=== PATIENT | male | born 1965 | race Caucasian/White ===

== ENCOUNTER → 2016-11-25 | Outpatient (CLI) | payer OTHER ==
[2016-11-25 09:43] LABS: Basophils % (A) 1 %; CH 32.3; CHCM 33.8; Eosinophils # (A) 0.1 k/uL (0-0.7); Eosinophils % (A) 1 %; HCT 43.4 % (39.0-53.0); HDW 2.42; HGB 14.2 gm/dL (13.0-17.5); Luc # (Auto) 0.17; Luc % (Auto) 2; Lymphocytes % (A) 26 %; MCH 31.4 pg (25.0-35.0); MCHC 32.7 g/dL (31.0-37.0); MCV 96.2 fL (80.0-100.0); Mean Platelet Volume 7.8; Monocytes # (A) 0.5 k/uL (0-1.0); Monocytes % (A) 7 %; Neutrophils # (A) 4.8 k/uL (1.3-7.7); Neutrophils % (A) 63 %; RBC 4.51 m/uL (4.30-5.90); RDW 14.8 % (11.5-15.5); WBC 7.6 k/uL (3.8-10.6); WBC (Perox) 7.38
[2016-11-25 10:48] LABS: ALT 64 U/L (21-72); AST 47 U/L (17-59); Alkaline Phosphatase 106 U/L (38-126); Anion Gap 10 mmol/L; Blood Urea Nitrogen 11 mg/dL (9-20); Calcium 9.8 mg/dL (8.4-10.2); Carbon Dioxide 27 mmol/L (22-30); Chloride 103 mmol/L (98-107); Glucose 116 mg/dL (74-99); HDL Cholesterol 62 mg/dL (40-60); Magnesium 1.9 mg/dL (1.6-2.3); Non-African American GFR(MDRD) >60 (>60 ml/min/1.73 sqM); Potassium 4.5 mmol/L (3.5-5.1); Sodium 140 mmol/L (137-145); Total Bilirubin 1.1 mg/dL (0.2-1.3); Total Protein 7.3 g/dL (6.3-8.2); Triglycerides 253 mg/dL (<150)
[2016-11-25 11:08] LABS: Cholesterol 392 mg/dL (<200)
[2016-11-25 12:43] LABS: Hemoglobin A1C 5.8 % (4.2-6.1)
[2016-11-25 13:00] LABS: Vitamin B12 323 pg/mL (239-931)
== END | disposition home or self-care (01) ==
LOC: LABWHC1 08:48
PROVIDERS: ATTEND Family Medicine
DX: F10.20 Alcohol dependence, uncomplicated (principal); E11.9 Type 2 diabetes mellitus without complications; I21.21 ST elevation (STEMI) myocardial infarction involving left circumflex coronary artery; E78.5 Hyperlipidemia, unspecified
CPT/HCPCS: 36415; 80053; 80061; 82607; 83036; 83735; 84439; 84443; 85025

== ENCOUNTER → 2017-03-08 | Outpatient (CLI) | payer OTHER ==
[2017-03-08 09:33] LABS: Aty Lym Flag Slight; CH 32.3; CHCM 33.6; HCT 44.9 % (39.0-53.0); HDW 2.37; HGB 14.7 gm/dL (13.0-17.5); MCH 31.6 pg (25.0-35.0); MCHC 32.7 g/dL (31.0-37.0); MCV 96.6 fL (80.0-100.0); RBC 4.65 m/uL (4.30-5.90); RDW 13.8 % (11.5-15.5); WBC 5.8 k/uL (3.8-10.6); WBC (Perox) 5.88
[2017-03-08 11:47] LABS: ALT 41 U/L (21-72); AST 26 U/L (17-59); Alkaline Phosphatase 100 U/L (38-126); Anion Gap 10 mmol/L; Blood Urea Nitrogen 15 mg/dL (9-20); Calcium 9.5 mg/dL (8.4-10.2); Carbon Dioxide 25 mmol/L (22-30); Chloride 105 mmol/L (98-107); Cholesterol 314 mg/dL (<200); Creatine Kinase 66 U/L (55-170); Glucose 114 mg/dL (74-99); HDL Cholesterol 51 mg/dL (40-60); Non-African American GFR(MDRD) >60 (>60 ml/min/1.73 sqM); Sodium 140 mmol/L (137-145); Total Bilirubin 0.9 mg/dL (0.2-1.3); Total Protein 7.4 g/dL (6.3-8.2); Triglycerides 221 mg/dL (<150)
[2017-03-08 12:36] LABS: Vitamin B12 518 pg/mL (239-931)
[2017-03-08 14:08] LABS: Add Differential Manual Differential
[2017-03-08 14:11] LABS: Nucleated Red Blood Cells 0 /100 WBC (0-0); Total Cells Counted 100
[2017-03-08 14:12] LABS: RBC Morphology Normal
== END | disposition home or self-care (01) ==
LOC: LABWHC1 08:39
PROVIDERS: ATTEND Family Medicine
DX: E78.5 Hyperlipidemia, unspecified (principal); I25.708 Atherosclerosis of coronary artery bypass graft(s), unspecified, with other forms of angina pectoris; F10.10 Alcohol abuse, uncomplicated
CPT/HCPCS: 36415; 80053; 80061; 82550; 82607; 83090; 84439; 84443; 85025

== ENCOUNTER 2017-04-10 11:15 | Emergency (ER) | payer OTHER ==
[2017-04-10 11:21] VITALS: BP 130/86; PULSE 74; RESP 18; TEMP 97.8
[2017-04-10] MEDS ORDERED: ORPHENADRINE 30 MG/ML 2 ML VIAL IM STA (13:31)
[2017-04-10] MEDS ORDERED: KETOROLAC 60 MG/2 ML VIAL IM STA (13:31)
--- NOTE | 2017-04-10 13:34 | ED ---
General Adult HPI - General Chief complaint: Neck Pain/Injury Stated complaint: neck pain Time Seen by Provider: 04/10/17 13:00 Source: patient, RN notes reviewed Mode of arrival: ambulatory Limitations: no limitations - History of Present Illness Initial comments: This is a 51-year-old male who presents emergency Department with right trapezius muscle pain. Patient states he was working on his car on Friday he didn't feel as though he strained it but when he went to work on Friday which is a job that has been doing a lot of lifting he had pain anytime he tried to lift anything. Patient states if he raises his arm up and sits on a table it relieves the pain in the trapezius muscle. Patient states any movement of the right arm causes some pain in the trapezius muscle. Patient denies any numbness weakness. Patient denies any chest pain difficulty breathing shortness of breath. Patient denies any palpitations. Patient denies any recent fever chills or cough. Patient denies any direct trauma to the area. - Related Data Home Medications Medication Instructions Recorded Confirmed Albuterol Inhaler [Ventolin Hfa 2 puff INHALATION RT-Q6H PRN 06/12/16 04/10/17 Inhaler] Aspirin 325 mg PO DAILY 06/12/16 04/10/17 Metoprolol Succinate [Toprol XL] 50 mg PO BID 06/12/16 04/10/17 Tiotropium 18 Mcg/Puff [Spiriva] 1 cap INHALATION RT-BID 06/12/16 04/10/17 amLODIPine BESYLATE [Amlodipine 5 mg PO BID 06/12/16 04/10/17 Besylate] metFORMIN HCL [Metformin HCl] 850 mg PO DAILY@1200 06/12/16 04/10/17 Cyanocobalamin [Vitamin B-12] 500 mcg PO DAILY 04/10/17 04/10/17 Royal 3-6-9mg 1 cap PO DAILY 04/10/17 04/10/17 Rosuvastatin [Crestor] 20 mg PO DAILY 04/10/17 04/10/17 buPROPion [Wellbutrin] 100 mg PO BID 04/10/17 04/10/17 Previous Rx's Medication Instructions Recorded Clopidogrel [Plavix] 75 mg PO DAILY #30 tab 09/13/16 Nitroglycerin Sl Tabs [Nitrostat] 0.4 mg SUBLINGUAL Q5M PRN #25 tab 09/13/16 Pantoprazole [Protonix] 40 mg PO AC-BRKFST #30 tablet. 09/13/16 Cyclobenzaprine [Flexeril] 10 mg PO TID #20 tab 04/10/17 Ibuprofen [Motrin] 600 mg PO Q6HR PRN #20 tab 04/10/17 Allergies Allergy/AdvReac Type Severity Reaction Status Date / Time codeine AdvReac Nausea Verified 04/10/17 13:30 Review of Systems ROS Statement: Those systems with pertinent positive or pertinent negative responses have been documented in the HPI. ROS Other: All systems not noted in ROS Statement are negative. Past Medical History Past Medical History: COPD, Diabetes Mellitus, GERD/Reflux, Hyperlipidemia, Hypertension, Myocardial Infarction ([place]), Osteoarthritis (OA) Additional Past Medical History / Comment(s): [place] x2 Last Myocardial Infarction Date:: 2008 History of Any Multi-Drug Resistant Organisms: None Reported Past Surgical History: Coronary Bypass/CABG, Heart Catheterization With Stent Additional Past Surgical History / Comment(s): CABG-4 vessel in 2007, stent x1 or 2, drug-eluting stent August 2016 of the SVG to OM 2 with aspiration thrombectomy Past Anesthesia/Blood Transfusion Reactions: No Reported Reaction Date of Last Stent Placement:: unk Past Psychological History: Anxiety Smoking Status: Current every day smoker Past Alcohol Use History: Daily Additional Past Alcohol Use History / Comment(s): 12 pack of beer per week with 1 pint of whiskey. He is currently smoking 1 pack per day of cigarettes down from 1-1/2 packs. He started smoking in 1985. He denies any medical marijuana , marijuana, street drug use. He lives at home with his . Past Drug Use History: None Reported Additional Drug Use History / Comment(s): last marijuana use 1 mos ago - Past Family History Mother Family Medical History: Myocardial Infarction ([place]) Additional Family Medical History / Comment(s): Other at age 57 with history of myocardial infarction and coronary artery disease with CABG. Brother(s) Family Medical History: Myocardial Infarction ([place]) Additional Family Medical History / Comment(s): Brother at age 50 from myocardial infarction with history of coronary artery disease and CABG. Sister(s) Family Medical History: Myocardial Infarction ([place]) Additional Family Medical History / Comment(s): Patient had 1 sister that at age 28 from myocardial infarction. Father History Unknown: Yes Additional Family Medical History / Comment(s): Father at age 71 from coronary artery disease. General Exam - General Exam Comments Initial Comments: GENERAL: Patient is well-developed and well-nourished. Patient is nontoxic and well- hydrated and is in mild distress. ENT: Neck is soft and supple. No significant lymphadenopathy is noted. Oropharynx is clear. Moist mucous membranes. Neck has full range of motion without eliciting any pain. EYES: The sclera were anicteric and conjunctiva were pink and moist. Extraocular movements were intact and pupils were equal round and reactive to light. Eyelids were unremarkable. PULMONARY: Unlabored respirations. Good breath sounds bilaterally. No audible rales rhonchi or wheezing was noted. CARDIOVASCULAR: There is a regular rate and rhythm without any murmurs gallops or rubs. SKIN: Skin is clear with no lesions or rashes and otherwise unremarkable. NEUROLOGIC: Patient is alert and oriented x3. Cranial nerves II through XII are grossly intact. Motor and sensory are also intact. Normal speech, volume and content. Symmetrical smile. Cerebellar exam grossly intact. MUSCULOSKELETAL: Patient is unable to lift the right arm above. All secondary to the pain in the trapezius muscle. The patient of the trapezius muscle on the right is very tender. When patient raises the arm up and sits on the table it relaxes the trapezius muscle and he has no pain whatsoever. LYMPHATICS: No significant lymphadenopathy is noted PSYCHIATRIC: Normal psychiatric evaluation. Limitations: no limitations Course Vital Signs 04/10/17 11:19 Temperature 97.8 F Pulse Rate 74 Respiratory 18 Rate Blood Pressure 130/86 O2 Sat by Pulse 98 Oximetry Medical Decision Making - Medical Decision Making EKG shows normal sinus rhythm at 64 bpm MN interval 138 QRS is under QT intervals 428 QTC is 441 per patient's EKG shows some T-wave inversions in V1 and V2 which are seen on old EKGs. Patient has no ST segment elevation or depression. Patient is experiencing no difficulty breathing shortness of breath or chest pain. Disposition Clinical Impression: Trapezius muscle strain Disposition: HOME SELF-CARE Condition: Good Instructions: Muscle Strain (ED) Prescriptions: Cyclobenzaprine [Flexeril] 10 mg PO TID #20 tab Ibuprofen [Motrin] 600 mg PO Q6HR PRN #20 tab PRN Reason: For pain Referrals: Chhaya Galindo MD [Primary Care Provider] - 1-2 days
== END 2017-04-10 14:24 | disposition home or self-care (01) ==
LOC: EC 11:15
DX: S29.012A Strain of muscle and tendon of back wall of thorax, initial encounter (principal); J44.9 Chronic obstructive pulmonary disease, unspecified; E11.9 Type 2 diabetes mellitus without complications; E78.5 Hyperlipidemia, unspecified; I10 Essential (primary) hypertension; I25.2 Old myocardial infarction; F41.9 Anxiety disorder, unspecified; F17.210 Nicotine dependence, cigarettes, uncomplicated; Z79.82 Long term (current) use of aspirin; Z79.84 Long term (current) use of oral hypoglycemic drugs; Z79.899 Other long term (current) drug therapy; Z88.5 Allergy status to narcotic agent; X50.9XXA Other and unspecified overexertion or strenuous movements or postures, initial encounter
CPT/HCPCS: 93005; 99283; 96372 ×2; J2360; J1885

== ENCOUNTER → 2017-06-25 | Outpatient (CLI) | payer OTHER ==
[2017-06-25 07:23] LABS: Basophils % (A) 1 %; CH 31.8; Eosinophils # (A) 0.2 k/uL (0-0.7); Eosinophils % (A) 3 %; HCT 46.9 % (39.0-53.0); HDW 2.31; Luc # (Auto) 0.26; Luc % (Auto) 4; Lymphocytes # (A) 2.4 k/uL (1.0-4.8); Lymphocytes % (A) 40 %; MCH 31.1 pg (25.0-35.0); MCV 96.9 fL (80.0-100.0); Mean Platelet Volume 7.6; Monocytes # (A) 0.4 k/uL (0-1.0); Monocytes % (A) 7 %; Neutrophils # (A) 2.8 k/uL (1.3-7.7); Neutrophils % (A) 46 %; RBC 4.84 m/uL (4.30-5.90); RDW 15.1 % (11.5-15.5); WBC (Perox) 5.72
[2017-06-25 11:03] LABS: Hemoglobin A1C 6.3 % (4.2-6.1)
[2017-06-25 11:37] LABS: Urine Creatinine 61.9 mg/dL
[2017-06-25 11:51] LABS: ALT 55 U/L (21-72); AST 33 U/L (17-59); Alkaline Phosphatase 95 U/L (38-126); Anion Gap 11 mmol/L; Blood Urea Nitrogen 15 mg/dL (9-20); Calcium 9.3 mg/dL (8.4-10.2); Carbon Dioxide 23 mmol/L (22-30); Chloride 107 mmol/L (98-107); Cholesterol 286 mg/dL (<200); Creatine Kinase 75 U/L (55-170); Glucose 98 mg/dL (74-99); HDL Cholesterol 54 mg/dL (40-60); Non-African American GFR(MDRD) >60 (>60 ml/min/1.73 sqM); Potassium 4.2 mmol/L (3.5-5.1); Sodium 141 mmol/L (137-145); Total Bilirubin 0.4 mg/dL (0.2-1.3); Total Protein 7.1 g/dL (6.3-8.2)
[2017-06-25 13:07] LABS: Vitamin B12 592 pg/mL (239-931)
== END | disposition home or self-care (01) ==
LOC: LABWHC1 06:33
PROVIDERS: ATTEND Family Medicine
DX: E78.2 Mixed hyperlipidemia (principal); I25.708 Atherosclerosis of coronary artery bypass graft(s), unspecified, with other forms of angina pectoris; J44.9 Chronic obstructive pulmonary disease, unspecified; E11.9 Type 2 diabetes mellitus without complications; I10 Essential (primary) hypertension
CPT/HCPCS: 36415; 80053; 80061; 82043; 82550; 82570; 82607; 83036; 83735; 83880; 84439; 84443; 85025

== ENCOUNTER → 2018-01-05 | Outpatient (CLI) | payer OTHER ==
[2018-01-05 08:31] LABS: Basophils % (A) 1 %; Eosinophils # (A) 0.1 k/uL (0-0.7); Eosinophils % (A) 2 %; HCT 47.5 % (39.0-53.0); HGB 15.1 gm/dL (13.0-17.5); Lymphocytes # (A) 1.9 k/uL (1.0-4.8); Lymphocytes % (A) 30 %; MCH 30.1 pg (25.0-35.0); MCHC 31.9 g/dL (31.0-37.0); MCV 94.5 fL (80.0-100.0); Mean Platelet Volume 6.9; Monocytes # (A) 0.4 k/uL (0-1.0); Monocytes % (A) 7 %; Neutrophils # (A) 3.6 k/uL (1.3-7.7); Neutrophils % (A) 57 %; Platelet Count 246 k/uL (150-450); RBC 5.03 m/uL (4.30-5.90); RDW 14.2 % (11.5-15.5); WBC 6.3 k/uL (3.8-10.6)
[2018-01-05 10:10] LABS: ALT 50 U/L (21-72); AST 32 U/L (17-59); Albumin 4.3 g/dL (3.5-5.0); Alkaline Phosphatase 86 U/L (38-126); Anion Gap 10 mmol/L; Blood Urea Nitrogen 12 mg/dL (9-20); Calcium 9.9 mg/dL (8.4-10.2); Carbon Dioxide 29 mmol/L (22-30); Chloride 102 mmol/L (98-107); Creatine Kinase 74 U/L (55-170); Glucose 128 mg/dL (74-99); HDL Cholesterol 63 mg/dL (40-60); Potassium 5.2 mmol/L (3.5-5.1); Sodium 141 mmol/L (137-145); Total Bilirubin 0.5 mg/dL (0.2-1.3); Total Protein 7.7 g/dL (6.3-8.2); Triglycerides 180 mg/dL (<150); Uric Acid 5.9 mg/dL (3.5-8.5)
[2018-01-05 10:16] LABS: LDL Cholesterol,Calculated 282 mg/dL (0-99)
[2018-01-05 10:20] LABS: Cholesterol 381 mg/dL (<200)
[2018-01-05 10:33] LABS: Prostate Specific Antigen 1.91 ng/mL (0.00-4.00)
== END | disposition home or self-care (01) ==
LOC: LABWHC1 07:41
PROVIDERS: ATTEND Family Medicine
DX: I25.708 Atherosclerosis of coronary artery bypass graft(s), unspecified, with other forms of angina pectoris (principal); I10 Essential (primary) hypertension; E78.5 Hyperlipidemia, unspecified; M72.2 Plantar fascial fibromatosis; N40.0 Benign prostatic hyperplasia without lower urinary tract symptoms; R97.20 Elevated prostate specific antigen [PSA]
CPT/HCPCS: 36415; 80053; 80061; 82550; 82607; 83036; 84153; 84550; 85025

== ENCOUNTER → 2018-04-22 | Outpatient (CLI) | payer OTHER ==
[2018-04-22 10:11] LABS: HCT 43.4 % (39.0-53.0); HGB 14.5 gm/dL (13.0-17.5); MCHC 33.3 g/dL (31.0-37.0); MCV 93.2 fL (80.0-100.0); Mean Platelet Volume 6.7; Platelet Count 277 k/uL (150-450); RBC 4.66 m/uL (4.30-5.90); RDW 14.7 % (11.5-15.5); WBC 5.5 k/uL (3.8-10.6)
[2018-04-22 10:36] LABS: Anion Gap 16 mmol/L; Blood Urea Nitrogen 11 mg/dL (9-20); Carbon Dioxide 23 mmol/L (22-30); Chloride 105 mmol/L (98-107); Potassium 4.4 mmol/L (3.5-5.1); Sodium 144 mmol/L (137-145)
== END | disposition home or self-care (01) ==
LOC: LABPAT 09:42
PROVIDERS: ATTEND Internal Medicine Cardiovascular Disease
DX: I20.9 Angina pectoris, unspecified (principal)
CPT/HCPCS: 36415; 80051; 82565; 84520; 85027

== ENCOUNTER 2018-04-23 10:10 | Day surgery (SDC) | payer OTHER ==
[2018-04-20 10:55] VITALS: BMI 35.4
[~2018-04-23 10:10] MED LIST: ALPRAZolam 0.25 MG TAB PO PRN; ALPRAZolam 0.5 MG TAB PO PRN; ASPIRIN 325 MG TAB PO STA; ATORVASTATIN 80 MG TAB PO STA; NITROGLYCERIN SL TABS 0.4 MG TAB SUBLINGUAL PRN; SODIUM CHLORIDE 0.9% 1,000 ML in EMPTY BAG 1 BAG IV ONE
[2018-04-23 10:58] LABS: Glucose,Whole Blood 117 mg/dL (75-99)
[2018-04-23] MEDS ORDERED: fentaNYL (PF) 50 MCG/ML 2 ML AMP ONE (12:20)
[2018-04-23] MEDS ORDERED: MIDAZOLAM 2 MG/2 ML VIAL IV ONE (12:20)
[2018-04-23] MEDS ORDERED: fentaNYL (PF) 50 MCG/ML 2 ML AMP IV ONE (12:20)
[2018-04-23] MEDS ORDERED: MIDAZOLAM 2 MG/2 ML VIAL ONE (12:20)
[2018-04-23] MEDS ORDERED: LIDOCAINE 2% INJ 20 MG/ML SQ ONE (12:22)
[2018-04-23] MEDS ORDERED: IOPAMIDOL-370 125ML BTL INJ ONE ×2 (12:43→13:27)
[2018-04-23] MEDS ORDERED: BIVALIRUDIN 250 MG in SODIUM CHLORIDE 0.9% 50 ML IV ONE (13:16)
[2018-04-23] MEDS ORDERED: BIVALIRUDIN BOLUS 250 MG/50 ML IV ONE (13:16)
[2018-04-23] MEDS ORDERED: CLOPIDOGREL 75 MG TAB ONE (13:17)
[2018-04-23] MEDS ORDERED: niCARdipine Syringe (1,000 mcg/10 mL) INTRACORON ONE (13:21)
[2018-04-23] MEDS ORDERED: CLOPIDOGREL 75 MG TAB PO ONE (13:22)
[2018-04-23 13:59] LABS: Glucose,Whole Blood 102 mg/dL (75-99)
[2018-04-23] MEDS ORDERED: IBUPROFEN 600 MG TAB PO PRN (14:02)
[2018-04-23] MEDS ORDERED: NITROGLYCERIN SL TABS 0.4 MG TAB SUBLINGUAL PRN (14:04)
[2018-04-23] MEDS ORDERED: MAG HYDROX/AL HYDROX/SIMETH 30 ML CUP PO PRN (14:04)
[2018-04-23] MEDS ORDERED: ATROPINE SULFATE 0.1 MG/ML 10ML SYRINGE IV PRN (14:04)
[2018-04-23] MEDS ORDERED: RX INFO: IV CONTRAST WAS GIVEN 1 EACH MISC MISCELLANE PRN (14:04)
[2018-04-23] MEDS ORDERED: ZOLPIDEM 5 MG TAB PO PRN (14:04)
[2018-04-23] MEDS: SODIUM CHLORIDE 0.9% 1,000 ML IV SCH (14:13)
[2018-04-23 17:20] LABS: Glucose,Whole Blood 115 mg/dL (75-99)
--- NOTE | 2018-04-23 18:04 | P.PCN ---
Date of Procedure: 04/23/18 Preoperative Diagnosis: Progressive angina and positive stress test Postoperative Diagnosis: Significant disease involving the graft to the left anterior descending. Total occlusion of the graft to the OM branch. Procedure(s) Performed: Left heart catheterization with selective coronary arteriography and selective injection of the remaining grafts and the BUENROSTRO graft. No LV gram Description of Procedure: HISTORY: This is a 52-year-old gentleman with history of extensive coronary artery disease with previous bypass surgery and also stent placement of the graft to the OM done in 2016. Patient has been having increasing exertional angina and a stress test showed reversible ischemia involving the anteroapical and inferoseptal area. Patient is advised to have a cardiac catheterization. CONSENT:I have discussed the risks, benefits and alternative therapies for the above-mentioned procedure and for both sedation/analgesia as well as necessary blood product administration, if indicated, as they pertain to this patient. The patient has indicated understanding and acceptance of the risks and procedures discussed. PROCEDURE: Patient was brought to the lab in a fasting state. Patient was given some IV sedation. The right groin is infiltrated with lidocaine and right femoral artery was entered using Seldinger technique. A 6-Maltese catheter was left in place and selective coronary arteriography and selective injection of the 3 vein grafts and BUENROSTRO graft was performed. Patient tolerated the procedure well. Patient went on to have stent placement of the vein graft to the LAD. Conscious Sedation: Versed 1mg Fentanyl 50 g Duration 28minutes HEMODYNAMICS: The aortic pressure is about 130/70. Left ankle end-diastolic pressure is 12. There was no gradient across the aortic valve SELECTIVE CORONARY ARTERIOGRAPHY: LEFT MAIN: Short with mild disease THE LEFT ANTERIOR DESCENDING CORONARY ARTERY: This has a 90% stenosis proximally and totally occluded in the midportion THE LEFT CIRCUMFLEX AND IS CORONARY ARTERY: Total occlusion of the 2 OM branches THE RIGHT CORONARY ARTERY: Totally occluded in the proximal portion THE BUENROSTRO GRAFT TO THE LAD: This is patent throat its length and also at least anastomosis. There is competent to flow into the distal LAD. The vein graft to the OM branch 2: This is totally occluded in the proximal portion prior to the stented area. The vein graft to the OM branch 1: This is patent at the proximal and distal anastomosis with some ectatic changes in the body. The OM branch beyond the insertion is patent. The vein graft to the LAD: This is patent at the proximal and distal anastomosis. There is about 70-80% lesion in the body. There is also valvve in the distal portion. LEFT VENTRICULOGRAPHY: Not performed FINAL IMPRESSION: Critical lesion in the body of the graft to the LAD. Total occlusion of the vein graft to the OM 1. The BUENROSTRO graft to the LAD seems to be functioning. The vein graft to the second OM is patent. All napaimute circulation is totally occluded PLAN: Stent placement of the graft to the LAD to be done by Dr. Chang PROGNOSIS: Fair
[2018-04-23] MEDS: IPRATROPIUM 0.5 MG/2.5 ML NEBU INHALATION SCH (19:43)
[2018-04-23] MEDS: METOPROLOL SUCCINATE (ER) 25 MG TAB.ER.24H PO SCH (20:15)
[2018-04-23] MEDS: amLODIPine 5 MG TAB PO SCH (20:15)
[2018-04-23 20:36] VITALS: RESP 18
[2018-04-24] MEDS: SODIUM CHLORIDE 0.9% 1,000 ML IV SCH (04:48)
--- NOTE | 2018-04-24 05:05 | PTCA ---
PERCUTANEOUSTRANS CORORONARY ANGIOGRAPHY DATE OF SERVICE: 04/23/2018 PROCEDURE PERFORMED: Successful stenting of the SVG to LAD using 3.5 x 18 mm Xience JUNIE with good angiographic results. INDICATION: This is a pleasant 52-year-old gentleman who sees Dr. Flores as an outpatient who is known to have coronary artery disease and prior coronary artery bypass grafting who was experiencing chest discomfort and underwent a heart catheterization by Dr. Flores and was found to have severe disease involving the midportion of the SVG to the LAD. After the heart catheterization, we decided to pursue intervention of the LAD. APPROACH: Right common femoral artery. COMPLICATION: None. LEVEL OF SEDATION: Moderate with sedation length of minutes. PROCEDURE DESCRIPTION: After diagnostic heart catheterization was performed by Dr. Flores, we decided to pursue with intervention on the SVG to LAD. Anticoagulation was initiated using Angiomax. Subsequently I took an LCB guide and the SVG to LAD was engaged. I wired that graft using a run-through wire. After that I did direct stenting using 3.5 x 18 mm Xience JUNIE where the stent was positioned under fluoroscopy guidance and deployed under 18 atmospheres. The following angiogram showed good angiographic results and the procedure was completed without any complication. POSTPROCEDURE MANAGEMENT: 1. Dual antiplatelet therapy. 2. Risk factors modifications. 3. Follow up with the patient. RAFAELA / KHADRAN: [id number] /
[2018-04-24 05:37] VITALS: TEMP 98.1
[2018-04-24 06:14] LABS: Basophils % (A) 1 %; Eosinophils # (A) 0.1 k/uL (0-0.7); Eosinophils % (A) 2 %; Lymphocytes # (A) 1.5 k/uL (1.0-4.8); Lymphocytes % (A) 21 %; MCH 30.7 pg (25.0-35.0); MCHC 32.4 g/dL (31.0-37.0); MCV 94.7 fL (80.0-100.0); Mean Platelet Volume 6.9; Monocytes # (A) 0.4 k/uL (0-1.0); Monocytes % (A) 6 %; Neutrophils % (A) 69 %; Platelet Count 210 k/uL (150-450); RBC 4.23 m/uL (4.30-5.90); RDW 14.7 % (11.5-15.5); WBC 7.3 k/uL (3.8-10.6)
[2018-04-24 06:25] LABS: Anion Gap 11 mmol/L; Blood Urea Nitrogen 14 mg/dL (9-20); Calcium 9.6 mg/dL (8.4-10.2); Carbon Dioxide 24 mmol/L (22-30); Chloride 103 mmol/L (98-107); Glucose 108 mg/dL (74-99); Potassium 4.6 mmol/L (3.5-5.1); Sodium 138 mmol/L (137-145)
[2018-04-24] MEDS ORDERED: PANTOPRAZOLE 40 MG TABLET PO SCH (07:30)
[2018-04-24] MEDS: IPRATROPIUM 0.5 MG/2.5 ML NEBU INHALATION SCH (07:53)
--- NOTE | 2018-04-24 08:45 | P.DS ---
Providers Date of admission: 04/23/2018 Attending physician: Jennifer Flores Consults: 04/23/18 14:04 Consult Physician Routine Consulting Provider: [facility] Consult Reason/Comments: Post Interventional patient Do you want consulting provider notified?: Already Contacted Placement Type Exists?: Yes Primary care physician: Chhaya Galindo - Discharge Diagnosis(es) (1) Crescendo angina Current Visit: Yes Status: Acute (2) COPD (chronic obstructive pulmonary disease) Current Visit: No Status: Acute (3) Hyperlipidemia Current Visit: No Status: Acute (4) Ischemic heart disease Current Visit: No Status: Acute (5) Positive cardiac stress test Current Visit: Yes Status: Acute Hospital Course: This patient has been having increasing anginal pains and had a positive stress test. Patient has history of previous bypass surgery and stent placement. Patient had a cardiac catheterization yesterday as an outpatient. He was found to have significant disease involving the vein graft to the LAD. The vein graft to the OM was totally occluded that was stented in 2015. Patient remained stable. His groin is soft. No complaints of any chest pain or shortness of breath. He is being discharged home in a stable condition. He is instructed to quit smoking and exercise regularly. He is also being considered for injectable lipid-lowering agent. Patient will have follow-up in the office in one week. Patient avoid any heavy exertion pushing and pulling Plan - Discharge Summary Discharge Rx Participant: No New Discharge Prescriptions: New amLODIPine [Norvasc] 5 mg PO BID #60 tab Ipratropium Nebulized [Atrovent Nebulized] 0.5 mg INHALATION RT-QID nebu Metoprolol Succinate (ER) [Toprol XL] 25 mg PO BID 90 Days #90 tab.er.24h Nitroglycerin Sl Tabs [Nitrostat] 0.4 mg SUBLINGUAL Q5M PRN #100 tab PRN Reason: Chest Pain Continue metFORMIN HCL [Metformin HCl] 850 mg PO W/LUNCH amLODIPine BESYLATE [Amlodipine Besylate] 5 mg PO BID Aspirin 325 mg PO DAILY Tiotropium 18 Mcg/Puff [Spiriva] 1 cap INHALATION BID Nitroglycerin Sl Tabs [Nitrostat] 0.4 mg SUBLINGUAL Q5M PRN #25 tab PRN Reason: Chest Pain Pantoprazole [Protonix] 40 mg PO AC-BRKFST #30 tablet. Rosuvastatin [Crestor] 20 mg PO DAILY Metoprolol Succinate (ER) [Toprol XL] 25 mg PO BID Isosorbide Mononitrate [Isosorbide Mononitrate ER] 30 mg PO DAILY Ezetimibe [Zetia] 10 mg PO DAILY Enalapril [Vasotec] 5 mg PO BID Ibuprofen 600 mg PO Q6HR PRN PRN Reason: Pain Clopidogrel [Plavix] 75 mg PO DAILY #30 tab Discharge Medication List Aspirin 325 mg PO DAILY 06/12/16 [History] Tiotropium 18 Mcg/Puff [Spiriva] 1 cap INHALATION BID 06/12/16 [History] amLODIPine BESYLATE [Amlodipine Besylate] 5 mg PO BID 06/12/16 [History] metFORMIN HCL [Metformin HCl] 850 mg PO W/LUNCH 06/12/16 [History] Nitroglycerin Sl Tabs [Nitrostat] 0.4 mg SUBLINGUAL Q5M PRN #25 tab 09/13/16 [Rx ] Pantoprazole [Protonix] 40 mg PO -BRKFST #30 tablet. 09/13/16 [Rx] Rosuvastatin [Crestor] 20 mg PO DAILY 04/10/17 [History] Enalapril [Vasotec] 5 mg PO BID 04/20/18 [History] Ezetimibe [Zetia] 10 mg PO DAILY 04/20/18 [History] Isosorbide Mononitrate [Isosorbide Mononitrate ER] 30 mg PO DAILY 04/20/18 [ History] Metoprolol Succinate (ER) [Toprol XL] 25 mg PO BID 04/20/18 [History] Ibuprofen 600 mg PO Q6HR PRN 04/23/18 [History] Clopidogrel [Plavix] 75 mg PO DAILY #30 tab 04/24/18 [Rx] Ipratropium Nebulized [Atrovent Nebulized] 0.5 mg INHALATION RT-QID nebu [Rx] Metoprolol Succinate (ER) [Toprol XL] 25 mg PO BID 90 Days #90 tab.er.24h [Rx] Nitroglycerin Sl Tabs [Nitrostat] 0.4 mg SUBLINGUAL Q5M PRN #100 tab 04/24/18 [ Rx] amLODIPine [Norvasc] 5 mg PO BID #60 tab 04/24/18 [Rx] Follow up Appointment(s)/Referral(s): Jennifer Flores MD [STAFF PHYSICIAN] - 05/01/18 2:15 pm (Friday) Patient Instructions/Handouts: *[facility] - After Heart Catheterization - Registration Coordinator Instructions, Left Heart Catheterization (DC) Discharge Disposition: HOME SELF-CARE
[2018-04-24] MEDS ORDERED: LISINOPRIL 20 MG TAB PO SCH (09:00)
[2018-04-24] MEDS ORDERED: EZETIMIBE 10 MG TAB PO SCH (09:00)
[2018-04-24] MEDS ORDERED: CLOPIDOGREL 75 MG TAB PO SCH (09:00)
[2018-04-24] MEDS ORDERED: ATORVASTATIN 40 MG TAB PO SCH (09:00)
[2018-04-24] MEDS ORDERED: ISOSORBIDE MONONITRATE ER 30 MG TAB.ER.24H PO SCH (09:00)
[2018-04-24] MEDS ORDERED: ASPIRIN 325 MG TAB PO SCH (09:00)
[2018-04-24] MEDS: amLODIPine 5 MG TAB PO SCH (09:25)
[2018-04-24] MEDS: METOPROLOL SUCCINATE (ER) 25 MG TAB.ER.24H PO SCH (09:25)
[2018-04-24 09:34] VITALS: BP 138/96; PULSE 87
== END 2018-04-24 09:32 | disposition home or self-care (01) ==
LOC: CATHCVL 10:10 → 6SEL 13:25 → CATHCVL 04-24 09:32
PROVIDERS: ATTEND Internal Medicine Cardiovascular Disease
DX: I25.718 Atherosclerosis of autologous vein coronary artery bypass graft(s) with other forms of angina pectoris (principal); I25.118 Atherosclerotic heart disease of native coronary artery with other forms of angina pectoris; I25.82 Chronic total occlusion of coronary artery; R94.31 Abnormal electrocardiogram [ECG] [EKG]; R94.39 Abnormal result of other cardiovascular function study; E11.9 Type 2 diabetes mellitus without complications; I11.9 Hypertensive heart disease without heart failure; E78.00 Pure hypercholesterolemia, unspecified; J44.9 Chronic obstructive pulmonary disease, unspecified; I25.2 Old myocardial infarction; Z95.5 Presence of coronary angioplasty implant and graft; Z79.82 Long term (current) use of aspirin; Z79.899 Other long term (current) drug therapy; Z88.5 Allergy status to narcotic agent; Z87.891 Personal history of nicotine dependence
CPT/HCPCS: 94640 ×2; 94760; 93459; 80048; 85025; C9604; C1760; C1887; C1769 ×3; C1894; C1874; J2001; J2250; J3010; J0583; Q9967

== ENCOUNTER → 2018-04-30 | Outpatient (CLI) | payer OTHER ==
[2018-04-30 08:21] LABS: ALT 66 U/L (21-72); AST 36 U/L (17-59); Cholesterol 240 mg/dL (<200); HDL Cholesterol 57 mg/dL (40-60); LDL Cholesterol,Calculated 124 mg/dL (0-99); Triglycerides 297 mg/dL (<150)
== END | disposition home or self-care (01) ==
LOC: LABWHC1 07:43
PROVIDERS: ATTEND Internal Medicine Cardiovascular Disease
DX: E78.2 Mixed hyperlipidemia (principal)
CPT/HCPCS: 36415; 80061; 84450; 84460

== ENCOUNTER → 2018-07-28 | Outpatient (CLI) | payer OTHER | END | disposition home or self-care (01) | LOC: CPPFTMAIN 10:21 | PROVIDERS: ATTEND Family Medicine | DX: J44.9 Chronic obstructive pulmonary disease, unspecified (principal) | CPT/HCPCS: 94060; 94726; 94729 ==

== ENCOUNTER 2018-08-26 11:17 | Inpatient (IN) | payer OTHER ==
[2018-08-26 21:04] LABS: Glucose,Whole Blood 212 mg/dL (75-99)
[2018-08-26] MEDS ORDERED: HEPARIN SOD,PORK IN 0.45% NACL 25,000 UNIT in 0.45% NACL 1 500ML.BAG IV SCH (21:15)
[2018-08-26] MEDS: INSULIN ASPART 100 UNIT/ML 1 ML 10 ML VIAL SQ SCH (21:15)
[2018-08-26] MEDS: amLODIPine 5 MG TAB PO SCH (21:35)
[2018-08-26] MEDS: METOPROLOL SUCCINATE (ER) 25 MG TAB.ER.24H PO SCH (21:35)
[2018-08-27 05:18] LABS: Hemoglobin A1C 6.8 % (4.0-6.0)
[2018-08-27 05:55] LABS: Glucose,Whole Blood 132 mg/dL (75-99)
[2018-08-27] MEDS: INSULIN ASPART 100 UNIT/ML 1 ML 10 ML VIAL SQ SCH ×3 (06:22→17:45)
[2018-08-27] MEDS: METOPROLOL SUCCINATE (ER) 25 MG TAB.ER.24H PO SCH (07:18)
[2018-08-27] MEDS: amLODIPine 5 MG TAB PO SCH (07:18)
[2018-08-27 07:21] LABS: HCT 37.6 % (39.0-53.0); HGB 12.7 gm/dL (13.0-17.5); MCH 31.2 pg (25.0-35.0); MCHC 33.7 g/dL (31.0-37.0); MCV 92.6 fL (80.0-100.0); Mean Platelet Volume 7.7; Platelet Count 184 k/uL (150-450); RBC 4.07 m/uL (4.30-5.90); RDW 13.9 % (11.5-15.5); WBC 7.7 k/uL (3.8-10.6)
[2018-08-27] MEDS ORDERED: PANTOPRAZOLE 40 MG TABLET PO SCH (07:30)
[2018-08-27 07:40] LABS: ALT 39 U/L (21-72); AST 20 U/L (17-59); Albumin 3.6 g/dL (3.5-5.0); Alkaline Phosphatase 68 U/L (38-126); Anion Gap 7 mmol/L; Blood Urea Nitrogen 12 mg/dL (9-20); Calcium 8.9 mg/dL (8.4-10.2); Carbon Dioxide 27 mmol/L (22-30); Chloride 108 mmol/L (98-107); Glucose 118 mg/dL (74-99); Potassium 4.3 mmol/L (3.5-5.1); Sodium 142 mmol/L (137-145); Total Bilirubin 0.5 mg/dL (0.2-1.3); Total Protein 6.5 g/dL (6.3-8.2)
[2018-08-27] MEDS ORDERED: MIDAZOLAM 2 MG/2 ML VIAL IV ONE (07:55)
[2018-08-27] MEDS ORDERED: fentaNYL (PF) 50 MCG/ML 2 ML AMP IV ONE (07:55)
[2018-08-27] MEDS ORDERED: LIDOCAINE 1% INJ 10MG/ML (20 ML MDV) SQ ONE (07:58)
[2018-08-27] MEDS ORDERED: SODIUM CHLORIDE 0.9% 500 ML 500 ML IV ONE (07:58)
[2018-08-27] MEDS ORDERED: IOPAMIDOL-370 125ML BTL INJ ONE (08:15)
--- NOTE | 2018-08-27 08:31 | P.CARDCATH ---
Date of Procedure: 08/27/18 Preoperative Diagnosis: Unstable angina Postoperative Diagnosis: The same Procedure(s) Performed: Left heart catheterization without left ventriculography. Description of Procedure: HISTORY: This is a 52-year-old gentleman with history of ischemic heart disease with previous bypass surgery and stent placement. Patient had BUENROSTRO graft to the LAD, vein graft to the LAD, vein graft to the OM1 and 2. The right was never bypassed. Patient had a Cardec catheterization in April of this year because of positive stress test and and symptoms. He was found to have significant disease involving the body of the graft to the LAD. Patient had stent placement. Patient is now admitted to [facility] with chest pain. EKGs and cardiac enzymes are negative. Dr. VC Ho evaluated the patient and recommended a cardiac catheterization. Patient is transferred to [facility] for cardiac cath. CONSENT:I have discussed the risks, benefits and alternative therapies for the above-mentioned procedure and for both sedation/analgesia as well as necessary blood product administration, if indicated, as they pertain to this patient. The patient has indicated understanding and acceptance of the risks and procedures discussed. PROCEDURE: Patient was brought to the lab in a fasting state. Patient was given some IV sedation. The right groin is infiltrated with lidocaine and right femoral artery was entered using Seldinger technique. A 6-Bengali catheter was left in place and selective coronary arteriography and selective injection of the 3 vein grafts was performed. The BUENROSTRO graft was not studied as it was patent in April of this year. Patient tolerated the procedure well. Femoral angiogram was performed and Angio-Seal was applied for hemostasis. No immediate complications were noted and patient was transferred to [facility] in a stable condition Conscious Sedation: Versed 1mg Fentanyl 50 g Duration 24minutes HEMODYNAMICS: The aortic pressure is about 130/70. Left ventricular end- diastolic pressure was not measured SELECTIVE CORONARY ARTERIOGRAPHY: LEFT MAIN: Normal length without any significant focal disease THE LEFT ANTERIOR DESCENDING CORONARY ARTERY:. This has a 90% stenosis proximally and totally occluded in the midportion THE LEFT CIRCUMFLEX AND IS CORONARY ARTERY:. This is a moderate caliber vessel with about 40-50% stenosis in the midportion of the body. There is total occlusion of the 2 OM branches. The circumflex provides collaterals to the right coronary artery THE RIGHT CORONARY ARTERY: This is totally occluded in the proximal portion. THE BUENROSTRO GRAFT TO LAD: This was not selectively studied because it was patent in April of this year. The vein graft to the FIRST OM: This is totally occluded in THE VEIN GRAFT TO THE SECOND OM: This is patent throughout its length and also previously stented area. The proximal and distal anastomosis are patent. The OM branches free of occlusive disease. THE VEIN GRAFT TO THE LAD: This is patent throat its length and also the proximal and distal anastomosis. The LAD beyond the insertion site appears to be free of any significant occlusive disease LEFT VENTRICULOGRAPHY:. Not performed FINAL IMPRESSION: Patent stent in the LAD. Rest of the coronary system is stable compared to the previous study. The BUENROSTRO graft was not selectively studied PLAN:. Continuation of medical therapy PROGNOSIS:. Guarded
[2018-08-27] MEDS ORDERED: ISOSORBIDE MONONITRATE ER 30 MG TAB.ER.24H PO SCH (09:00)
[2018-08-27] MEDS ORDERED: ASPIRIN 325 MG TAB PO SCH (09:00)
[2018-08-27] MEDS ORDERED: CLOPIDOGREL 75 MG TAB PO SCH (09:00)
[2018-08-27 09:27] VITALS: RESP 16
[2018-08-27] MEDS ORDERED: NITROGLYCERIN SL TABS 0.4 MG TAB SUBLINGUAL PRN (11:10)
[2018-08-27 12:12] LABS: Glucose,Whole Blood 111 mg/dL (75-99)
[2018-08-27] MEDS: IPRATROPIUM 0.5 MG/2.5 ML NEBU INHALATION SCH ×2 (12:13→15:57)
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
--- NOTE | 2018-08-27 12:22 | P.DS ---
Providers Date of admission: 08/26/18 19:42 Attending physician: Des Odom Consults: 08/26/18 21:15 Consult Physician Routine Consulting Provider: Jennifer Flores Consult Reason/Comments: heart cath Do you want consulting provider notified?: Yes Placement Type Exists?: Yes Primary care physician: Chhaya Galindo [facility] Course: History of Present Illness H&P Date: 08/27/18 Chief Complaint: Chest pain, CAD, non-ST MD, hypertension, hyperlipidemia, depression and CO 52-year-old male one of Dr.'s Galindo's patient with past medical history of CAD post CABG 4 vessel, multiple stent placement in the past, history of COPD, heavy alcoholic who presented to [facility] department at [facility] on 08/25/2018 with chest pain worsening with exertion symptom lasted over 2 hours become much worse walks and wean up till he made it to [facility]. Patient has taking nitro at help at the time was started on heparin drip and admitted to the hospital history point and was mildly elevated the time. Patient was hospitalized seeing cardiology [facility] and diagnosed with non-ST MD decided to transfer him to [facility] for intervention possible require angioplasty and stent placement after doing a heart cath. Patient ended up coming to [facility] last night for the above problem. His medication were continue same lab did not show any abnormality, I called level subtle down and patient respiratory and lungs status has improved significantly. Patient is going for heart cath this morning by cardiology and if needed intervention will be done. Review of Systems CONSTITUTIONAL: Well-developed no acute respiratory distress. EYES: No icterus sclerae, no conjunctivitis. EARS, NOSE, MOUTH, THROAT, and FACE: No sore throat, lymphadenopathy, carotid bruits or deformity. RESPIRATORY: Mild shortness of breath, cough and wheezes. CARDIOVASCULAR: Positive shortness of breath, positive chest pain or angina-type , positive PND orthopnea and palpitation.. GASTROINTESTINAL: No Abd pain, Nausea or vomiting, no Diarrhea or constipation, No GI Bleed, no distention or masses. GENITOURINARY: Negative for Hematuria or UTI, no kidney stones. INTEGUMENT/BREAST: Negative for any muscular injury with mild osteoarthritis.. HEMATOLOGIC/LYMPHATIC: Negative for bleed or purpura. MUSCULOSKELTAL: Positive myalgia along with arthralgia and back pain. NEURLOGICAL: No LOC, Sz or syncope, blurred vision dizziness or abnormality.. BEHAVIORAL/PSYCH: Negative. ENDOCRINE: Negative. Physical Exam Vitals: Vital Signs Temp Pulse Pulse Resp BP Pulse Ox 08/27/18 10:35 63 16 118/72 92 L 08/27/18 10:05 65 16 114/76 93 L 08/27/18 09:20 62 16 123/80 91 L 08/27/18 09:05 66 16 121/76 91 L 08/27/18 08:50 64 16 122/70 90 L 08/27/18 08:35 62 16 121/72 92 L 08/27/18 06:25 72 122/82 08/27/18 04:00 96.2 F L 88 18 125/80 93 L 08/27/18 00:00 96.2 F L 70 18 128/85 95 08/26/18 20:43 96.5 F L 90 16 138/93 95 Intake and Output 08/26/18 08/27/18 08/27/18 22:59 06:59 14:59 Intake Total 12.667 100 Output Total 380 Balance -367.333 100 Intake: IV 100 Intake, IV Titration 12.667 Amount Heparin Sod,Pork in 0.45% 12.667 NaCl 25,000 unit In 0.45 % NaCl 1 500ml.bag @ 8. 504 UNITS/KG/HR 20 mls/hr IV .Q24H [facility] Rx#: [id number] Oral 0 Output: Urine 380 Other: # Voids 1 1 Weight 117.6 kg 117.2 kg General Appearance: Alert, overweight, cooperative, no distress, appears stated age. Neck HEENT: Supple, no lymphadenopathy, no thyroid enlargement, no carotid bruits. Lungs: Decreased breath sound at bases bilaterally past fine rhonchi with mild expiratory wheezes.. Chest Wall: Chest wall normal expansion with deep inspiration no tenderness and no deformity was found on exam, no costochondral pain or discomfort. Heart: Regular rate and rhythm, S1, S2 normal, no murmur, rub or gallop. Back: Symmetric, no curvature, ROM normal, no CVA tenderness. Abdomen: Soft, non-tender, bowel sounds active all four quadrants, no masses, no organomegaly. Extremities: Extremities normal, atraumatic, no cyanosis or edema. Positive generalized arthralgia especially in the knees and hips bilaterally. Pulses: 2+ and symmetric. Skin: Skin color, texture, tugor normal, no rashes or lesions. Neurologic: Alert oriented x3 cranial nerves II through XII intact, no motor deficit, no abnormal balance or gait. Physical Exam Vitals: Vital Signs Temp Pulse Pulse Resp BP Pulse Ox 08/27/18 10:35 63 16 118/72 92 L 08/27/18 10:05 65 16 114/76 93 L 08/27/18 09:20 62 16 123/80 91 L 08/27/18 09:05 66 16 121/76 91 L 08/27/18 08:50 64 16 122/70 90 L 08/27/18 08:35 62 16 121/72 92 L 08/27/18 06:25 72 122/82 08/27/18 04:00 96.2 F L 88 18 125/80 93 L 08/27/18 00:00 96.2 F L 70 18 128/85 95 08/26/18 20:43 96.5 F L 90 16 138/93 95 Intake and Output 08/26/18 08/27/18 08/27/18 22:59 06:59 14:59 Intake Total 12.667 100 Output Total 380 Balance -367.333 100 Intake: IV 100 Intake, IV Titration 12.667 Amount Heparin Sod,Pork in 0.45% 12.667 NaCl 25,000 unit In 0.45 % NaCl 1 500ml.bag @ 8. 504 UNITS/KG/HR 20 mls/hr IV .Q24H [facility] Rx#: [id number] Oral 0 Output: Urine 380 Other: # Voids 1 1 Weight 117.6 kg 117.2 kg General Appearance: Alert, overweight, cooperative, no distress, appears stated age. Neck HEENT: Supple, no lymphadenopathy, no thyroid enlargement, no carotid bruits. Lungs: Decreased breath sound at bases bilaterally past fine rhonchi with mild expiratory wheezes.. Chest Wall: Chest wall normal expansion with deep inspiration no tenderness and no deformity was found on exam, no costochondral pain or discomfort. Heart: Regular rate and rhythm, S1, S2 normal, no murmur, rub or gallop. Back: Symmetric, no curvature, ROM normal, no CVA tenderness. Abdomen: Soft, non-tender, bowel sounds active all four quadrants, no masses, no organomegaly. Extremities: Extremities normal, atraumatic, no cyanosis or edema. Positive generalized arthralgia especially in the knees and hips bilaterally. Pulses: 2+ and symmetric. Skin: Skin color, texture, tugor normal, no rashes or lesions. Neurologic: Alert oriented x3 cranial nerves II through XII intact, no motor deficit, no abnormal balance or gait. Assessment and Plan Plan: 1 non-ST MD: Patient was transferred from [facility], will be going for angiogram or heart catheter and possible require angioplasty or stent placement. The depend on the finding of the cath further management will be discussed in done. 2 CAD: Post 4 vessel CABG along with multiple angioplasty and stent placement, seeing cardiology regular basis continue current management. 3 hypertension: Remain on enalapril 5 mg a day along with metoprolol 50 mg twice a day and amlodipine 5 mg twice a day. 4 hyperlipidemia: Remain on Zetia 10 mg a day and Crestor 10 mg a day continue both medication. 5 diabetes: Patient remain on metformin, continue Accu-Chek with sliding scales coverage. 6 COPD: Patient is doing mixup with graft treatment continue O2 try to keep his pulse ox above 90 percentile and if needed smaller dose of steroid can be use. 7 chronic depression: Patient has been on Lexapro continue medication. 8 alcoholism: Patient I called level on admission to [facility] was quite bit high is not having any withdrawal symptom at this time will keep an eye on his CIWA scale and use benzodiazepine when necessary for DT. 9 severe GERD/GI prophylaxis: Remain on pantoprazole 40 mg a day. 10 restless leg syndrome: Has been on Requip 0.25 mg 3 times a day doing well with it. Hospital course: Patient ended up coming to [facility] where heart catheter was performed did not show any major abnormality, had some blockage in the stented area compared to the last heart cath had but no new finding require any intervention at this point. At discussion with the patient and his by the plan decided to quit smoking and drinking he will continue nicotine patch as an outpatient and last Dr. Galindo to provide him and help him with Chantix if possible. Also he is given a see his patient safety manager shortly after his discharge and continue secondary prevention as expected. Patient is very stable to be discharged home today 08/27/2018. Plan - Discharge Summary Discharge Rx Participant: No New Discharge Prescriptions: New Insulin Aspart [NovoLOG (formulary)] 0 unit SQ ACHS #0 vial Continue metFORMIN HCL [Metformin HCl] 850 mg PO W/LUNCH amLODIPine BESYLATE [Amlodipine Besylate] 5 mg PO BID Aspirin 325 mg PO DAILY Tiotropium 18 Mcg/Puff [Spiriva] 1 cap INHALATION BID Nitroglycerin Sl Tabs [Nitrostat] 0.4 mg SUBLINGUAL Q5M PRN #25 tab PRN Reason: Chest Pain Pantoprazole [Protonix] 40 mg PO AC-BRKFST #30 tablet. Rosuvastatin [Crestor] 20 mg PO DAILY Metoprolol Succinate (ER) [Toprol XL] 25 mg PO BID Isosorbide Mononitrate [Isosorbide Mononitrate ER] 30 mg PO DAILY Ezetimibe [Zetia] 10 mg PO DAILY Enalapril [Vasotec] 5 mg PO BID Ibuprofen 600 mg PO Q6HR PRN PRN Reason: Pain amLODIPine [Norvasc] 5 mg PO BID #60 tab Ipratropium Nebulized [Atrovent Nebulized] 0.5 mg INHALATION RT-QID nebu Metoprolol Succinate (ER) [Toprol XL] 25 mg PO BID 90 Days #90 tab.er.24h Nitroglycerin Sl Tabs [Nitrostat] 0.4 mg SUBLINGUAL Q5M PRN #100 tab PRN Reason: Chest Pain Clopidogrel [Plavix] 75 mg PO DAILY #30 tab Discharge Medication List Aspirin 325 mg PO DAILY 06/12/16 [History] Tiotropium 18 Mcg/Puff [Spiriva] 1 cap INHALATION BID 06/12/16 [History] amLODIPine BESYLATE [Amlodipine Besylate] 5 mg PO BID 06/12/16 [History] metFORMIN HCL [Metformin HCl] 850 mg PO W/LUNCH 06/12/16 [History] Nitroglycerin Sl Tabs [Nitrostat] 0.4 mg SUBLINGUAL Q5M PRN #25 tab 09/13/16 [Rx ] Pantoprazole [Protonix] 40 mg PO AC-BRKFST #30 tablet. 09/13/16 [Rx] Rosuvastatin [Crestor] 20 mg PO DAILY 04/10/17 [History] Enalapril [Vasotec] 5 mg PO BID 04/20/18 [History] Ezetimibe [Zetia] 10 mg PO DAILY 04/20/18 [History] Isosorbide Mononitrate [Isosorbide Mononitrate ER] 30 mg PO DAILY 04/20/18 [ History] Metoprolol Succinate (ER) [Toprol XL] 25 mg PO BID 04/20/18 [History] Ibuprofen 600 mg PO Q6HR PRN 04/23/18 [History] Clopidogrel [Plavix] 75 mg PO DAILY #30 tab 04/24/18 [Rx] Ipratropium Nebulized [Atrovent Nebulized] 0.5 mg INHALATION RT-QID nebu [Rx] Metoprolol Succinate (ER) [Toprol XL] 25 mg PO BID 90 Days #90 tab.er.24h [Rx] Nitroglycerin Sl Tabs [Nitrostat] 0.4 mg SUBLINGUAL Q5M PRN #100 tab 04/24/18 [ Rx] amLODIPine [Norvasc] 5 mg PO BID #60 tab 04/24/18 [Rx] Insulin Aspart [NovoLOG (formulary)] 0 unit SQ ACHS #0 vial 08/27/18 [Rx] Follow up Appointment(s)/Referral(s): Chhaya Galindo MD [Primary Care Provider] - 09/03/18 1:45 pm ( with [facility]) Jennifer Flores MD [STAFF PHYSICIAN] - 1 Week Patient Instructions/Handouts: *Surgery [facility] - After Heart Catheterization - Educator Senior Clinical Instructions, Left Heart Catheterization (DC)
[2018-08-27] MEDS ORDERED: RX INFO: IV CONTRAST WAS GIVEN 1 EACH MISC MISCELLANE PRN ×2 (14:07→14:11)
[2018-08-27] MEDS ORDERED: SODIUM CHLORIDE 0.9% 1,000 ML IV SCH (14:15)
[2018-08-27 16:50] LABS: Glucose,Whole Blood 113 mg/dL (75-99)
[2018-08-27 17:36] VITALS: BP 133/76; PULSE 78; TEMP 97.7
[2018-08-27] MEDS ORDERED: METOPROLOL SUCCINATE (ER) 25 MG TAB.ER.24H PO SCH (21:00)
[2018-08-27] MEDS ORDERED: amLODIPine 5 MG TAB PO SCH (21:00)
[2018-08-27] MEDS ORDERED: NON-FORMULARY DRUG (Tiotropium 18 Mcg/Puff 1 CAP) INHALATION SCH (21:00)
[2018-08-28] MEDS ORDERED: ATORVASTATIN 40 MG TAB PO SCH (09:00)
[2018-08-28] MEDS ORDERED: EZETIMIBE 10 MG TAB PO SCH (09:00)
--- NOTE | 2018-09-01 07:59 | CDI ---
Last Revision, October 2017 Documentation Clarification Form Date: 09/01/18 From: Valorie Huang Phone: If you have a question regarding this query, please contact Amairani Manrique at [phone] between 8am and 5pm. Admit Date: 08/26/2018 7:42:00 PM Patient Name: Lc Swanson Visit Number: [id number] Discharge Date: 08/27/18 ATTENTION: The Clinical Documentation Specialists (CDI) and [facility] Coding Staff appreciate your assistance in clarifying documentation. Please respond to the clarification below the line at the bottom and electronically sign. The CDI & [facility] Coding staff will review the response and follow-up if needed. Please note: Queries are made part of the Legal Health Record. If you have any questions, please contact the author of this message via ITS. Des Thacker MD Conflicting documentation has been found in the medical record. NSTEMI is documented in your H&P and discharge summary. Dr. Flores documented unstable angina in the heart cath report. History/Risk Factors: Patient was transferred to this facility from [facility] with chest pain worsening on exertion. Patient has a history of CAD, RI, angioplasty with stent, CABG, hypertension, hyperlipidemia, COPD and is a smoker. Clinical Indicators: Chest pain with exertion. Troponins from [facility]: 0.056 and 0.188. EKG: Normal sinus rhythm, possible left atrial enlargement, cannot rule out anterior infarct age undetermined. Treatment: IV Heparin Cardiac Cath: Patent stent in the LAD. Rest of the coronary system is stable compared to the previous study. The BUENROSTRO graft was not selectively studied. Plan: Continuation of medical therapy. In your opinion what is the most clinically appropriate diagnosis for this patient? Unstable Angina ---NSTEMI ruled out after study. NSTEMI confirmed. Other explanation of clinical findings Unable to determine (no explanation for clinical findings) ___NSTEMI MTDD
== END 2018-08-27 18:10 | disposition home or self-care (01) | DRG 282 ==
LOC: 6SEL 19:42
PROVIDERS: ADMIT Internal Medicine Geriatric Medicine; ATTEND Internal Medicine Geriatric Medicine
PROC: 4A023N7 Measurement of Cardiac Sampling and Pressure, Left Heart, Percutaneous Approach (ICD-10-PCS; principal; 2018-08-26)
PROC: B2131ZZ Fluoroscopy of Multiple Coronary Artery Bypass Grafts using Low Osmolar Contrast (ICD-10-PCS; 2018-08-26)
PROC: B2111ZZ Fluoroscopy of Multiple Coronary Arteries using Low Osmolar Contrast (ICD-10-PCS; 2018-08-26)
DX: I21.4 Non-ST elevation (NSTEMI) myocardial infarction (principal); I25.10 Atherosclerotic heart disease of native coronary artery without angina pectoris; E11.9 Type 2 diabetes mellitus without complications; E78.5 Hyperlipidemia, unspecified; F10.20 Alcohol dependence, uncomplicated; F17.210 Nicotine dependence, cigarettes, uncomplicated; F32.9 Major depressive disorder, single episode, unspecified; G25.81 Restless legs syndrome; I10 Essential (primary) hypertension; I25.2 Old myocardial infarction; J44.9 Chronic obstructive pulmonary disease, unspecified; K21.9 Gastro-esophageal reflux disease without esophagitis; F41.9 Anxiety disorder, unspecified; K64.9 Unspecified hemorrhoids; M19.90 Unspecified osteoarthritis, unspecified site; R25.1 Tremor, unspecified; E66.3 Overweight; Z68.37 Body mass index [BMI] 37.0-37.9, adult; Z79.02 Long term (current) use of antithrombotics/antiplatelets; Z79.4 Long term (current) use of insulin; Z79.82 Long term (current) use of aspirin; Z79.899 Other long term (current) drug therapy; Z88.5 Allergy status to narcotic agent; Z95.1 Presence of aortocoronary bypass graft; Z95.5 Presence of coronary angioplasty implant and graft; Z82.49 Family history of ischemic heart disease and other diseases of the circulatory system; Z84.89 Family history of other specified conditions; Z80.0 Family history of malignant neoplasm of digestive organs; Z80.8 Family history of malignant neoplasm of other organs or systems; Z84.1 Family history of disorders of kidney and ureter
CPT/HCPCS: 80053; 83036; 85027; 85730; 93459; 94640

== ENCOUNTER 2018-08-27 20:59 | Emergency (ER) | payer OTHER ==
[2018-08-27] MEDS ORDERED: GLUCAGON 1 MG/ML VIAL IVP STA (21:21)
[2018-08-27] MEDS ORDERED: METOCLOPRAMIDE 5 MG/ML 2 ML VIAL IVP STA (21:21)
[2018-08-27] MEDS ORDERED: NITROGLYCERIN SL TABS 0.4 MG TAB SUBLINGUAL STA (22:13)
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
[2018-08-28] MEDS ORDERED: SODIUM CHLORIDE 0.9% 500 ML 500 ML IV ONE ×2 (00:34)
[2018-08-28] MEDS ORDERED: PROPOFOL 10 MG/ML 20 ML VIAL IV ONE (00:35)
[2018-08-28] MEDS ORDERED: LIDOCAINE 1% INJ 10MG/ML (20 ML MDV) ONE (00:35)
[2018-08-28 01:59] VITALS: BP 136/76; PULSE 72; RESP 16; TEMP 97.9
--- NOTE | 2018-08-28 12:15 | PCN ---
PROCEDURE NOTE DATE OF SERVICE: 08/28/2018 BRIEF HISTORY: The patient is a 52-year-old white male who came into the emergency room with acute food impaction. He was admitted to the hospital for chest pain, had a cardiac catheterization and was just discharged home at 6 p.m. last evening and he ate a turkey dinner in the hospital for dinner before he went home. He could not swallow any further. He went home thinking that he would pass the food bolus. However, he continued to have persistent dysphagia, not able to swallow secretion and hence he came back to the emergency room around 10 p.m. He upper endoscopy on emergency basis in the ER. PROCEDURE PERFORMED: EGD with biopsy and foreign body removal. IV sedation per anesthesia. PROCEDURE: After informed consent was obtained from the patient, the procedure was performed in the ER. The Olympus GIF-190 video endoscope was inserted into the mouth. Esophagus was intubated without any difficulty and was gradually advanced into the distal esophagus. There was a large piece of food bolus impacted in the distal esophagus. Using a snare, I was able to dislodge the food impaction and the food was pushed into the stomach. The scope at this time was advanced into the stomach and duodenum and carefully examined. Bulb and the second part of the duodenum appeared normal. The scope at this time was withdrawn to the stomach adequately insufflated with air and upon careful examination, the mucosa of antrum, body, cardia and fundus appeared normal. The scope was then withdrawn. The GE junction was located at 40 cm. There was an distal esophageal stricture identified. The mucosal folds in the distal esophagus appeared very thickened and inflamed and multiple biopsies were done to evaluate for eosinophilic esophagitis. The mid and proximal esophagus appeared normal. The patient tolerated the procedure well. IMPRESSION: 1. Distal esophageal food bolus impaction, status post removal as described above. 2. Thickened distal esophageal folds with early distal esophageal stricture, status post multiple biopsies to rule out eosinophilic esophagitis. RECOMMENDATION: Findings of this examination were discussed with the patient and his . He will be discharged home today. He was advised to continue with Protonix 40 mg daily. He will be seen in the office in 2 weeks. MMODL / IJN: [id number] /
== END 2018-08-28 02:08 | disposition home or self-care (01) ==
LOC: EC 20:59
DX: T18.128A Food in esophagus causing other injury, initial encounter (principal); J45.909 Unspecified asthma, uncomplicated; E78.5 Hyperlipidemia, unspecified; I10 Essential (primary) hypertension; I25.10 Atherosclerotic heart disease of native coronary artery without angina pectoris; E11.9 Type 2 diabetes mellitus without complications; M19.90 Unspecified osteoarthritis, unspecified site; I25.2 Old myocardial infarction; F17.200 Nicotine dependence, unspecified, uncomplicated; Z88.5 Allergy status to narcotic agent; Z79.52 Long term (current) use of systemic steroids; Z79.82 Long term (current) use of aspirin; Z79.84 Long term (current) use of oral hypoglycemic drugs; Z79.899 Other long term (current) drug therapy; Z86.69 Personal history of other diseases of the nervous system and sense organs; Z95.1 Presence of aortocoronary bypass graft; Z95.5 Presence of coronary angioplasty implant and graft; Z82.49 Family history of ischemic heart disease and other diseases of the circulatory system
CPT/HCPCS: 88305; 43239; 43247; 99284; 96374; 96375; 96361; J1610; J2765; J2001; J2704

== ENCOUNTER → 2018-09-01 | Outpatient (CLI) | payer OTHER ==
--- NOTE | 2018-09-01 10:36 | CT ---
EXAMINATION TYPE: CT chest wo con DATE OF EXAM: 09/01/2018 COMPARISON: Chest x-ray 09/11/2016 HISTORY: SOB CT DLP: 263 mGycm. Automated Exposure Control for Dose Reduction was Utilized. TECHNIQUE: CT scan of the thorax is performed without IV contrast. Limited scanning performed with h igh-resolution algorithm FINDINGS: There is some motion on the exam. LUNGS: The lungs are grossly clear, there is no concerning parenchymal mass or nodule identified. T here is no pleural effusion or pneumothorax seen. The tracheobronchial tree is patent. There is bron chial wall thickening. No significant emphysematous change or interstitial changes are present. No br onchiectasis. MEDIASTINUM: Lack of IV contrast is noted to limit evaluation for mediastinal and especially hilar ad enopathy. There are no definitive greater than 1 cm hilar or mediastinal lymph nodes. The heart is en larged. There is no pericardial effusion. Coronary artery calcifications are present. Patient is post median sternotomy and coronary artery bypass grafts. Calcification suspected within the aorta. No ev ident aneurysm. OTHER: No additional significant abnormality is seen. IMPRESSION: Cardiomegaly, coronary artery disease and postop changes. Correlate for possible chronic bronchitis, reactive airways disease.
== END ==
LOC: RADCTMAIN 07:12
PROVIDERS: ATTEND Family Medicine
DX: I51.7 Cardiomegaly (principal); I25.10 Atherosclerotic heart disease of native coronary artery without angina pectoris; Z98.890 Other specified postprocedural states
CPT/HCPCS: 71250

== ENCOUNTER 2018-11-17 12:20 | Emergency (ER) | payer OTHER ==
[2018-11-17 12:58] VITALS: BP 128/82; PULSE 71; RESP 18; TEMP 97.6
--- NOTE | 2018-11-17 13:50 | XR ---
EXAMINATION TYPE: XR foot complete LT DATE OF EXAM: 11/17/2018 CLINICAL HISTORY: Left foot pain TECHNIQUE: Frontal, lateral, and oblique images of the left foot are obtained. COMPARISON: None FINDINGS: There is no acute fracture/dislocation evident in the left foot. There is a healing fract ure deformity of the proximal left fifth phalanx with periosteal reaction. No overlying soft tissue s welling is seen. Similar healing fracture deformity is seen of the distal diaphysis of the second met atarsal. The joint spaces in the left foot appear within normal limits. Very small plantar enthesoph yte is noted. The overlying soft tissue appears unremarkable. IMPRESSION: Healing fracture deformities of the fifth proximal phalanx and distal diaphysis of the se cond metatarsal with no radiographic overlying soft tissue swelling, subacute to chronic.
--- NOTE | 2018-11-17 15:07 | XR ---
EXAMINATION TYPE: XR ankle complete LT DATE OF EXAM: 11/17/2018 COMPARISON: NONE HISTORY: Pain TECHNIQUE: 3 views FINDINGS: There is mild soft tissue swelling around the ankle joint. Ankle mortise is anatomic. There are small plantar and Achilles calcaneal spurs. IMPRESSION: Soft tissue mild swelling. No fracture seen.
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
== END 2018-11-17 16:05 | disposition home or self-care (01) ==
LOC: EC 12:20
DX: M21.962 Unspecified acquired deformity of left lower leg (principal); I25.10 Atherosclerotic heart disease of native coronary artery without angina pectoris; E11.9 Type 2 diabetes mellitus without complications; E78.5 Hyperlipidemia, unspecified; I10 Essential (primary) hypertension; I25.2 Old myocardial infarction; M19.90 Unspecified osteoarthritis, unspecified site; Z95.1 Presence of aortocoronary bypass graft; Z95.818 Presence of other cardiac implants and grafts; Z95.5 Presence of coronary angioplasty implant and graft; F17.200 Nicotine dependence, unspecified, uncomplicated; Z79.82 Long term (current) use of aspirin; Z79.84 Long term (current) use of oral hypoglycemic drugs; Z79.899 Other long term (current) drug therapy; Z88.5 Allergy status to narcotic agent; W10.9XXA Fall (on) (from) unspecified stairs and steps, initial encounter; Y93.01 Activity, walking, marching and hiking; Y92.009 Unspecified place in unspecified non-institutional (private) residence as the place of occurrence of the external cause
CPT/HCPCS: 29515; 99283

== ENCOUNTER → 2018-11-25 | Outpatient (CLI) | payer OTHER ==
--- NOTE | 2018-11-26 04:23 | CT ---
EXAMINATION TYPE: CT foot LT wo con DATE OF EXAM: 11/25/2018 COMPARISON: Radiographs 11/17/2018 HISTORY: 52-year-old male with pain along the top of the left foot from fall TECHNIQUE: Contiguous axial scanning of the left foot without IV contrast. Coronal and sagittal recon structions performed. 3-D reconstructions generated on a dedicated independent workstation. CT DLP: 311 mGycm Automated exposure control for dose reduction was used. FINDINGS: There is an oblique, nondisplaced fracture involving the mid and plantar aspect of the second metatar jose c base. The fracture fragment measures 1.4 x 1.0 cm and is intra-articular extension into the TMT j oint. The fracture also encompasses a portion of the interosseous and volar attachment of the Lisfran c ligament. However, no tenisha midfoot alignment is identified. In addition, tiny punctate 2 mm bony fragments are present, one interposed between the first-second i ntermetatarsal joint, along the medial plantar aspect of the first TMT joint, and along the dorsal as pect of the third TMT joint. Moderate degenerative change at the first MTP joint. Degenerative changes at the first metatarsal ses amoid joints as well. No additional acute fracture, subluxation, or dislocation is seen. Chronic healed fracture deformities of the distal shaft of the second metatarsal as well as the fifth proximal phalanx. IMPRESSION: 1. NONDISPLACED INTRA-ARTICULAR FRACTURE AT THE BASE OF THE SECOND METATARSAL. THE FRAGMENT [place] ES SOME OF THE INTEROSSEOUS PORTION OF THE LISFRANC LIGAMENT WELL THE VOLAR PORTION OF THE LISF RANC LIGAMENT. AGAIN, NO DISPLACEMENT. NO MID FOOT MALALIGNMENT. 2. APPROXIMATELY 3 ADDITIONAL PUNCTATE 2 MM AVULSION FRAGMENTS SCATTERED AT THE FIRST AND THIRD TMT J OINTS. THESE TINY FRAGMENTS LIKELY INVOLVE OTHER PORTIONS OF THE LISFRANC LIGAMENT COMPLEX.
== END | disposition home or self-care (01) ==
LOC: RADCTMAIN 16:55
PROVIDERS: ATTEND Orthopaedic Surgery
DX: S92.325A Nondisplaced fracture of second metatarsal bone, left foot, initial encounter for closed fracture (principal)

== ENCOUNTER 2021-01-16 00:30 | Emergency (ER) | payer OTHER ==
[2021-01-16 00:35] VITALS: PULSE 99; RESP 22; TEMP 98.4
[2021-01-16 00:37] VITALS: BP 149/81
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
== END 2021-01-16 01:00 | disposition home or self-care (01) ==
LOC: EC 00:30
DX: Z48.01 Encounter for change or removal of surgical wound dressing (principal); E78.5 Hyperlipidemia, unspecified; E11.9 Type 2 diabetes mellitus without complications; F17.200 Nicotine dependence, unspecified, uncomplicated; I25.10 Atherosclerotic heart disease of native coronary artery without angina pectoris; J44.9 Chronic obstructive pulmonary disease, unspecified; M19.90 Unspecified osteoarthritis, unspecified site; I25.2 Old myocardial infarction; I10 Essential (primary) hypertension; Z79.02 Long term (current) use of antithrombotics/antiplatelets; Z79.51 Long term (current) use of inhaled steroids; Z79.82 Long term (current) use of aspirin; Z79.84 Long term (current) use of oral hypoglycemic drugs; Z79.899 Other long term (current) drug therapy; Z85.820 Personal history of malignant melanoma of skin
CPT/HCPCS: 99282

== ENCOUNTER → 2021-01-23 | Outpatient (CLI) | payer OTHER ==
--- NOTE | 2021-01-23 12:21 | XR ---
EXAMINATION TYPE: XR chest 2V DATE OF EXAM: 01/23/2021 COMPARISON: Chest CT September 01, 2018. Prior chest x-ray September 11, 2016. HISTORY: Cough. TECHNIQUE: Frontal and lateral views of the chest are obtained. FINDINGS: There is chronic parenchymal change bilaterally without suspicious new focal air space opa city, pleural effusion, or pneumothorax seen. Overlying sternal wires and mediastinal clips redemons trated. The cardiac silhouette size is stable and upper limits of normal. The osseous structures ar e intact. IMPRESSION: Chronic changes without acute pulmonary process.
== END ==
LOC: RADXRMAIN 11:56
PROVIDERS: ATTEND Family Medicine
DX: R05 Cough (principal)
CPT/HCPCS: 71046

== ENCOUNTER → 2021-02-13 | Outpatient (CLI) | payer MEDICARE, OTHER ==
[~2021-02-13] MED LIST changes: -ALPRAZolam 0.25 MG TAB PO PRN; -ALPRAZolam 0.5 MG TAB PO PRN; -ASPIRIN 325 MG TAB PO STA; -ATORVASTATIN 80 MG TAB PO STA; -NITROGLYCERIN SL TABS 0.4 MG TAB SUBLINGUAL PRN; +REGADENOSON 0.4 MG/5 ML SYRINGE IV PRN; -SODIUM CHLORIDE 0.9% 1,000 ML in EMPTY BAG 1 BAG IV ONE
--- NOTE | 2021-02-13 14:30 | EST ---
EXERCISE STRESS DATE OF SERVICE: 02/13/2021 AGE: 55 SEX: Male HT: 5'9" WT: 270 lbs. PROTOCOL: Lexiscan Cardiolite STAGE: N/A DURATION OF EXERCISE: N/A HEART RATE REST: 80 BLOOD PRESSURE REST: 130/93 MAXIMUM HEART RATE ACHIEVED: 96 MAXIMUM BLOOD PRESSURE: 132/91 85% MPHR: 142 100% MPHR: 168 METS: N/A INDICATIONS: Heart disease CLINICAL INFORMATION: Baseline EKG revealed normal sinus rhythm with mild IVCD, poor R-wave progression and nonspecific ST abnormality. With Lexiscan administration, heart rate changed from 80- 96 beats per minute, blood pressure changed from 130/90 to 124/81, and came back to baseline. Isolated PVCs were noted. EKG remained inconclusive. By EKG criteria, this was an inconclusive Lexiscan stress test because of resting EKG changes. The nuclear scan results which are more pertinent will be reported by the radiologist. MMBALDEMARL / KHADRAN: [id number] /
--- NOTE | 2021-02-13 15:04 | NM ---
EXAMINATION TYPE: NM stress lexiscan cardiolite DATE OF EXAM: 02/13/2021 COMPARISON: 04/25/2015 HISTORY: 55-year-old male I25.10, heart disease. TECHNIQUE: After the intravenous administration of 9.71 mCi Tc 99m Sestamibi - Cardiolite resting SP ECT images acquired 45 minutes post injection. The patient received 0.4mg Lexiscan, 24.8 mCi Tc 99m Sestamibi - Stress images obtained [address] injection FINDINGS: Review of stress and rest SPECT images demonstrates moderate-sized defect involving the mid to apical anterior wall and cardiac apex. There is also reversibility seen involving the basal anteroseptal wa ll. Gated analysis shows mild global hypokinesis with an estimated left ventricular ejection fraction of 42 %. TID is calculated at 1.02, within normal limits. IMPRESSION: 1. Moderate-sized defect involving the mid to apical anterior wall and cardiac apex suggesting old in farct. 2. Reversibility demonstrated along the basal anteroseptal wall. 3. Mild global hypokinesis with estimated LVEF of 42%. Consider possible ischemic cardiomyopathy.
== END | disposition home or self-care (01) ==
LOC: RADNMMAIN 08:12
PROVIDERS: ATTEND Family Medicine
DX: I51.89 Other ill-defined heart diseases (principal)
CPT/HCPCS: 93017; 78452; A9500; J2785

== ENCOUNTER 2021-03-06 07:38 | Day surgery (SDC) | payer MEDICARE, OTHER ==
[2021-02-26 09:09] VITALS: BMI 40.7
[~2021-03-06 07:38] MED LIST changes: +ALPRAZolam 0.25 MG TAB PO PRN; +ALPRAZolam 0.5 MG TAB PO PRN; +ASPIRIN 325 MG TAB PO STA; +HEPARIN SODIUM,PORCINE 10,000 UNIT in SODIUM CHLORIDE 0.9% 1,000 ML IRRIGATION PRN; +HEPARIN SODIUM,PORCINE 2,500 UNIT in SODIUM CHLORIDE 0.9% 250 ML IRRIGATION PRN; +NITROGLYCERIN SL TABS 0.4 MG TAB SUBLINGUAL PRN; -REGADENOSON 0.4 MG/5 ML SYRINGE IV PRN; +SODIUM CHLORIDE 0.9% 1,000 ML in EMPTY BAG 1 BAG IV ONE
[2021-03-06 08:03] LABS: Glucose,Whole Blood 146 mg/dL (75-99)
[2021-03-06] MEDS ORDERED: LIDOCAINE 1% INJ 10MG/ML (20 ML MDV) ONE (08:49)
[2021-03-06] MEDS ORDERED: fentaNYL (PF) 50 MCG/ML 2 ML AMP ONE (08:52)
[2021-03-06] MEDS: MIDAZOLAM 2 MG/2 ML VIAL IVP ONE ×2 (09:00→09:45)
[2021-03-06] MEDS ORDERED: fentaNYL (PF) 50 MCG/ML 2 ML AMP IVP ONE (09:00)
[2021-03-06] MEDS ORDERED: LIDOCAINE 1% INJ 10MG/ML (20 ML MDV) SQ ONE (09:09)
[2021-03-06] MEDS ORDERED: CLOPIDOGREL 75 MG TAB ONE (09:36)
[2021-03-06] MEDS ORDERED: BIVALIRUDIN BOLUS 250 MG/50 ML IV ONE (09:37)
[2021-03-06] MEDS ORDERED: BIVALIRUDIN 250 MG in SODIUM CHLORIDE 0.9% 50 ML IV ONE (09:38)
[2021-03-06] MEDS ORDERED: niCARdipine 25 MG/10 ML VIAL ONE (09:38)
[2021-03-06] MEDS ORDERED: CLOPIDOGREL 75 MG TAB PO ONE (09:43)
--- NOTE | 2021-03-06 09:49 | P.CARDCATH ---
Date of Procedure: 03/06/21 Preoperative Diagnosis: Positive stress test, cardiomyopathy and previous bypass surgery. Preop clearance Postoperative Diagnosis: Critical stenosis involving the graft to the LAD and ostium and moderate to severe disease in the midportion Procedure(s) Performed: Left heart catheterization with selective injection of the BUENROSTRO graft and 2 vein grafts. No left ventriculography Description of Procedure: HISTORY: This is a 55-year-old gentleman with history of ischemic heart disease with previous bypass surgery and multiple stent placement , who was sent to our office for preop clearance. Patient had a stress test which showed ischemia in the anterior wall and deteriorated LV function with an ejection fraction of 40%. Patient is advised to have cardiac catheterization for definitive diagnosis. CONSENT:I have discussed the risks, benefits and alternative therapies for the above-mentioned procedure and for both sedation/analgesia as well as necessary blood product administration, if indicated, as they pertain to this patient. The patient has indicated understanding and acceptance of the risks and procedures discussed. PROCEDURE: Patient was brought to the lab in a fasting state. Patient was given some IV sedation. The right groin is infiltrated with lidocaine and right femoral artery was entered using Seldinger technique. A 6-Sinhala catheter was left in place and selective coronary arteriography and selective injection of the 2 vein grafts and the BUENROSTRO graft was performed. Patient tolerated the procedure well. Femoral angiogram was performed and patient went on to have stent placement of the LAD by Dr. Chang. No immediate complications were noted . Conscious Sedation: Versed 1mg Fentanyl 50 g Duration 18minutes HEMODYNAMICS: The aortic pressure is 130/80. Left ventricle end-diastolic pressure is about 15. There was no gradient across the aortic valve SELECTIVE CORONARY ARTERIOGRAPHY: LEFT MAIN: Short and has mild disease THE LEFT ANTERIOR DESCENDING CORONARY ARTERY: Totally occluded in the proximal portion THE LEFT CIRCUMFLEX AND IS CORONARY ARTERY: Total occlusion of the OM branches. Only AV groove segment is present THE RIGHT CORONARY ARTERY:. Total occluded in the proximal portion The BUENROSTRO graft to the LAD: This is patent throat its l ength and also the proximal and distal anastomosis. The vein graft to the LAD: This is a about 95% ostial stenosis. There is also about 70-80% stenosis involving the body. There is competent to flow into the LAD. It The vein graft to the first OM branch: This was no point is totally occluded last time. The vein graft to the second OM branch: This vein graft shows diffuse with a severe with areas of about 50% stenosis. There appears to be good flow. The distal circumflex is free of occlusive disease LEFT VENTRICULOGRAPHY:. Not performed FINAL IMPRESSION:. Critical lesion involving the ostium of the vein graft to the LAD and also severe disease involving the body. The vein graft to the OM branch shows significant ectasia the aneurysmal formation and moderate disease but no critical lesions. The second vein graft to the OM branch was totally occluded. The BUENROSTRO graft to the LAD is patent. All [place] vessels approximately total occluded except AV groove branch PLAN: Proceed with stent placement of the LAD, both at the ostium and also the body of the graft PROGNOSIS: Guarded
[2021-03-06] MEDS ORDERED: MORPHINE SULFATE 4 MG/ML SYRINGE ONE (09:50)
[2021-03-06] MEDS ORDERED: MORPHINE SULFATE 4 MG/ML SYRINGE IVP ONE (09:51)
[2021-03-06] MEDS ORDERED: NITROGLYCERIN SL TABS 0.4 MG TAB SUBLINGUAL ONE ×2 (09:54→09:55)
[2021-03-06] MEDS ORDERED: IOPAMIDOL-370 150ML BTL INJ ONE (09:58)
[2021-03-06] MEDS ORDERED: niCARdipine Syringe (1,000 mcg/10 mL) INTRACORON ONE (10:03)
[2021-03-06] MEDS ORDERED: IOPAMIDOL-370 100ML BTL INJ ONE (10:06)
[2021-03-06] MEDS ORDERED: NITROGLYCERIN SL TABS 0.4 MG TAB SUBLINGUAL PRN ×2 (10:15→10:16)
[2021-03-06] MEDS ORDERED: traMADol 50 MG TAB PO PRN (10:15)
[2021-03-06] MEDS ORDERED: RX INFO: IV CONTRAST WAS GIVEN 1 EACH MISC MISCELLANE PRN (10:16)
[2021-03-06] MEDS ORDERED: ZOLPIDEM 5 MG TAB PO PRN (10:16)
[2021-03-06] MEDS ORDERED: MAG HYDROX/AL HYDROX/SIMETH 30 ML CUP PO PRN (10:16)
[2021-03-06] MEDS ORDERED: ATROPINE SULFATE 0.1 MG/ML 10ML SYRINGE IV PRN (10:16)
[2021-03-06] MEDS ORDERED: SODIUM CHLORIDE 0.9% 1,000 ML IV SCH (10:30)
--- NOTE | 2021-03-06 10:59 | PTCA ---
PERCUTANEOUSTRANS CORORONARY ANGIOGRAPHY PERCUTANEOUS CORONARY INTERVENTION: DATE OF SERVICE: March 06, 2021. PERFORMING PHYSICIAN: Adrian Garcia MD. PROCEDURE PERFORMED: Successful stenting of the SVG to LAD using 4.0 x 15 mm and 4.0 x 15 mm Xience drug- eluting stent with an excellent angiographic result. INDICATION: This is a 55-year-old gentleman who sees Dr. Flores as an outpatient with history of coronary artery disease and prior coronary artery bypass grafting, who was experiencing symptoms of chest discomfort and underwent a heart catheterization and that revealed critical disease involving the ostial and distal SVG to LAD. Because of that, PCI was advised. APPROACH: Right common femoral artery. COMPLICATION: None. LEVEL OF SEDATION: Moderate with sedation length of 31 minutes. PROCEDURE DESCRIPTION: Please refer to diagnostic heart catheterization that was performed by Dr. Flores earlier today. Anticoagulation was initiated using Angiomax. Subsequently I did engage the SVG to LAD using an LCB guide. I did wire it using a Whisper wire. I did balloon angioplasty of the proximal anastomosis using 3.5 x 15 mm balloon. Advancing stent across the ostium was unsuccessful and because of that I double wire the graft using another Whisper wire. After that I was able to advance the stent to the distal graft and that was 4.0 x 15 mm Xience drug-eluting stent where the stent was positioned under fluoroscopy guidance and deployed under its nominal pressure. The following angiogram showed good angiographic results and the procedure was completed without any complication. For the proximal anastomosis of the graft, I was able to advance another 4.0 x 15 mm Xience where the stent again was positioned under fluoroscopy guidance and deployed under its nominal pressure. The following angiogram showed good angiographic results and the procedure was completed without any complication. POSTPROCEDURE MANAGEMENT: 1. Dual anti-platelet therapy. 2. Risk factor modifications. 3. Follow up with the patient. MMODL / IJN: [id number] /
[2021-03-06 16:55] LABS: Glucose,Whole Blood 139 mg/dL (75-99)
[2021-03-06] MEDS: SYMBICORT 80-4.5 MCG INHALER INHALATION SCH (19:42)
[2021-03-06] MEDS: amLODIPine 5 MG TAB PO SCH (21:03)
[2021-03-06 21:04] LABS: Glucose,Whole Blood 107 mg/dL (75-99)
[2021-03-06] MEDS: VARENICLINE 1 MG TAB PO SCH (21:04)
[2021-03-06] MEDS: METOPROLOL SUCCINATE (ER) 25 MG TAB.ER.24H PO SCH (21:04)
[2021-03-07 05:55] LABS: Basophils % (A) 1 %; Eosinophils # (A) 0.1 k/uL (0-0.7); Eosinophils % (A) 2 %; HCT 42.2 % (39.0-53.0); HGB 14.5 gm/dL (13.0-17.5); Lymphocytes # (A) 1.5 k/uL (1.0-4.8); Lymphocytes % (A) 28 %; MCH 33.2 pg (25.0-35.0); MCHC 34.5 g/dL (31.0-37.0); MCV 96.4 fL (80.0-100.0); Mean Platelet Volume 7.7; Monocytes # (A) 0.4 k/uL (0-1.0); Monocytes % (A) 7 %; Neutrophils # (A) 3.3 k/uL (1.3-7.7); Neutrophils % (A) 60 %; Platelet Count 175 k/uL (150-450); RBC 4.38 m/uL (4.30-5.90); RDW 13.8 % (11.5-15.5); WBC 5.5 k/uL (3.8-10.6)
[2021-03-07 06:05] LABS: African American GFR (CKD) >90 (>60 ml/min/1.73 sqM); Anion Gap 8 mmol/L; Blood Urea Nitrogen 13 mg/dL (9-20); Calcium 9.6 mg/dL (8.4-10.2); Carbon Dioxide 26 mmol/L (22-30); Chloride 102 mmol/L (98-107); Glucose 130 mg/dL (74-99); Non-African American GFR(CKD) >90 (>60 ml/min/1.73 sqM); Potassium 4.2 mmol/L (3.5-5.1); Sodium 136 mmol/L (137-145)
[2021-03-07 07:17] LABS: Glucose,Whole Blood 159 mg/dL (75-99)
[2021-03-07] MEDS: METOPROLOL SUCCINATE (ER) 25 MG TAB.ER.24H PO SCH (07:25)
[2021-03-07] MEDS: amLODIPine 5 MG TAB PO SCH (07:26)
[2021-03-07] MEDS: VARENICLINE 1 MG TAB PO SCH (07:27)
[2021-03-07 07:30] VITALS: BP 158/89; PULSE 79; RESP 18; TEMP 97.8
[2021-03-07] MEDS ORDERED: PANTOPRAZOLE 40 MG TABLET PO SCH (07:30)
[2021-03-07] MEDS: SYMBICORT 80-4.5 MCG INHALER INHALATION SCH (07:57)
[2021-03-07] MEDS ORDERED: lisinopriL 20 MG TAB PO SCH (09:00)
[2021-03-07] MEDS ORDERED: ISOSORBIDE MONONITRATE ER 30 MG TAB.ER.24H PO SCH (09:00)
[2021-03-07] MEDS ORDERED: CLOPIDOGREL 75 MG TAB PO SCH (09:00)
[2021-03-07] MEDS ORDERED: ATORVASTATIN 80 MG TAB PO SCH (09:00)
[2021-03-07] MEDS ORDERED: EZETIMIBE 10 MG TAB PO SCH (09:00)
[2021-03-07] MEDS ORDERED: FAMOTIDINE 20 MG TAB PO SCH (09:00)
[2021-03-07] MEDS ORDERED: ASPIRIN 325 MG TAB PO SCH (09:00)
--- NOTE | 2021-03-07 15:21 | P.DS ---
Providers Attending physician: Jennifer Flores Consults: 03/06/21 10:16 Consult Physician Routine Consulting Provider: [facility] Consult Reason/Comments: Post Interventional patient Do you want consulting provider notified?: Already Contacted Primary care physician: Chhaya Galindo Plan - Discharge Summary Discharge Rx Participant: No New Discharge Prescriptions: Continue Aspirin 325 mg PO DAILY Pantoprazole [Protonix] 40 mg PO AC-BRKFST #30 tablet. Rosuvastatin [Crestor] 40 mg PO DAILY Isosorbide Mononitrate [Isosorbide Mononitrate ER] 30 mg PO DAILY Enalapril [Vasotec] 5 mg PO BID amLODIPine [Norvasc] 5 mg PO BID #60 tab Metoprolol Succinate (ER) [Toprol XL] 25 mg PO BID 90 Days #90 tab.er.24h Nitroglycerin Sl Tabs [Nitrostat] 0.4 mg SUBLINGUAL Q5M PRN #100 tab PRN Reason: Chest Pain Clopidogrel [Plavix] 75 mg PO DAILY #30 tab rOPINIRole HCL [Requip] 0.25 mg PO TID metFORMIN HCL [Glucophage] 850 mg PO DAILY Famotidine [Pepcid] 20 mg PO DAILY #30 tablet Ezetimibe [Zetia] 10 mg PO DAILY Varenicline [Chantix Continuing Pack] 1 mg PO BID Budesonide/Formoterol Fumarate [Symbicort 80-4.5 Mcg Inhaler] 1 puff INHAL ATION BID traMADol HCl [Ultram] 50 mg PO Q4HR PRN PRN Reason: Pain Discontinued Ibuprofen 600 mg PO Q6HR PRN PRN Reason: Pain Discharge Medication List Aspirin 325 mg PO DAILY 06/12/16 [History] Pantoprazole [Protonix] 40 mg PO AC-BRKFST #30 tablet. 09/13/16 [Rx] Rosuvastatin [Crestor] 40 mg PO DAILY 04/10/17 [History] Enalapril [Vasotec] 5 mg PO BID 04/20/18 [History] Isosorbide Mononitrate [Isosorbide Mononitrate ER] 30 mg PO DAILY 04/20/18 [History] Clopidogrel [Plavix] 75 mg PO DAILY #30 tab 04/24/18 [Rx] Metoprolol Succinate (ER) [Toprol XL] 25 mg PO BID 90 Days #90 tab.er.24h 04/24/18 [Rx] Nitroglycerin Sl Tabs [Nitrostat] 0.4 mg SUBLINGUAL Q5M PRN #100 tab 04/24/18 [Rx] amLODIPine [Norvasc] 5 mg PO BID #60 tab 04/24/18 [Rx] metFORMIN HCL [Glucophage] 850 mg PO DAILY 08/27/18 [History] rOPINIRole HCL [Requip] 0.25 mg PO TID 08/27/18 [History] Famotidine [Pepcid] 20 mg PO DAILY #30 tablet 08/28/18 [Rx] Budesonide/Formoterol Fumarate [Symbicort 80-4.5 Mcg Inhaler] 1 puff INHALATION BID 12/09/18 [History] Ezetimibe [Zetia] 10 mg PO DAILY 12/09/18 [History] Varenicline [Chantix Continuing Pack] 1 mg PO BID 12/09/18 [History] traMADol HCl [Ultram] 50 mg PO Q4HR PRN 03/06/21 [History] Follow up Appointment(s)/Referral(s): Jennifer Flores MD [STAFF PHYSICIAN] - 03/13/21 3:45 pm () Patient Instructions/Handouts: *Surgery [facility] - After Heart Catheterization - [place] Operator Instructions, Left Heart Catheterization (DC) Discharge Disposition: HOME SELF-CARE Pending Studies Pending Results: INTERVAL HISTORY: The patient is a 55-year-old male past medical history of ischemic heart disease with previous bypass surgery and also stent placement, patent graft to LAD, type 2 diabetes, hypertension, dyslipidemia. He was admitted to the hospital by Dr. Flores. He was sent to [facility] office for preop clearance. Patient had a stress test which showed ischemia in the anterior wall and deteriorated LV function with an ejection fraction of 40%. Patient was advised to have cardiac catheterization for definitive diagnosis. Patient underwent left heart catheterization with PCI yesterday. His cardiac catheterization revealed Critical lesion involving the ostium of the vein graft to the LAD and also severe disease involving the body. The vein graft to the OM branch shows significant ectasia the aneurysmal formation and moderate disease but no critical lesions. The second vein graft to the OM branch was totally occluded. The BUENROSTRO graft to the LAD is patent. All [place] vessels approximately total occluded except AV groove branch. PHYSICAL EXAMINATION: Blood [id number], heart rate 79, respirations 18, temp 97.8. Patient is96% on room air HEART: S1, S2 normal. LUNGS: Clear to auscultation. NECK: Supple. ABDOMEN: Soft. EXTREMITIES: 2+ peripheral pulses. Right femoral cath site, clean, dry no hematoma. LAB DATA: CBC unremarkable. Sodium 136, potassium 4.2, renal function stable serum creatinine 0.74, BUN 13 FINAL IMPRESSION: 1. Coronary artery disease status post previous bypass surgery stent placement, s/p stenting as stated above yesterday 2. Type 2 diabetes 3. Hypertension 4. Dyslipidemia PLAN: Patient may be able to be discharged home today. We will make him a follow-up appointment with Dr. Flores as scheduled. Patient is already on dual-antiplatelet therapy which he will continue. Continue home cardiac medications. Patient has all available medications at home and did not need prescriptions at this time.
== END 2021-03-07 12:10 | disposition home or self-care (01) ==
LOC: CATHCVL 07:38 → 6NMEDSUR 13:23 → CATHCVL 03-07 12:10
PROVIDERS: ATTEND Internal Medicine Cardiovascular Disease
DX: I25.10 Atherosclerotic heart disease of native coronary artery without angina pectoris (principal); I25.810 Atherosclerosis of coronary artery bypass graft(s) without angina pectoris; I25.82 Chronic total occlusion of coronary artery; I25.3 Aneurysm of heart; I10 Essential (primary) hypertension; E78.5 Hyperlipidemia, unspecified; F17.210 Nicotine dependence, cigarettes, uncomplicated; I25.2 Old myocardial infarction; E78.00 Pure hypercholesterolemia, unspecified; E11.9 Type 2 diabetes mellitus without complications; Z79.82 Long term (current) use of aspirin; Z79.899 Other long term (current) drug therapy
CPT/HCPCS: 94640 ×2; 93459; 80048; 85025; 87635; C9607; C1760; C1769 ×4; C1887; C1725; C1894; C1874; J2250; J2270; J2001; J3010; J0583; Q9967 ×2

== ENCOUNTER 2021-05-01 12:25 | Emergency (ER) | payer MEDICARE, OTHER ==
[2021-05-01 12:45] VITALS: BP 117/80; PULSE 85; RESP 18; TEMP 97.8
[2021-05-01] MEDS ORDERED: MORPHINE SULFATE 2 MG/ML SYRINGE IM STA (13:24)
[2021-05-01] MEDS ORDERED: diazePAM 2 MG TAB PO STA (13:24)
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
== END 2021-05-01 13:47 | disposition home or self-care (01) ==
LOC: EC 12:25
DX: S39.012A Strain of muscle, fascia and tendon of lower back, initial encounter (principal); E11.9 Type 2 diabetes mellitus without complications; E78.5 Hyperlipidemia, unspecified; F17.200 Nicotine dependence, unspecified, uncomplicated; I10 Essential (primary) hypertension; I25.10 Atherosclerotic heart disease of native coronary artery without angina pectoris; I25.2 Old myocardial infarction; J44.9 Chronic obstructive pulmonary disease, unspecified; K21.9 Gastro-esophageal reflux disease without esophagitis; M19.90 Unspecified osteoarthritis, unspecified site; Z95.5 Presence of coronary angioplasty implant and graft; X58.XXXA Exposure to other specified factors, initial encounter; Z79.02 Long term (current) use of antithrombotics/antiplatelets; Z79.82 Long term (current) use of aspirin; Z79.84 Long term (current) use of oral hypoglycemic drugs; Z85.828 Personal history of other malignant neoplasm of skin; Z95.1 Presence of aortocoronary bypass graft; F32.9 Major depressive disorder, single episode, unspecified
CPT/HCPCS: 99283; 96372; J2270

== ENCOUNTER 2021-07-04 11:25 | Emergency (ER) | payer MEDICARE, OTHER ==
[2021-07-04 12:04] VITALS: BP 132/83; PULSE 99; RESP 17; TEMP 98
[2021-07-04] MEDS ORDERED: LIDOCAINE 5% PATCH TOPICAL STA (12:57)
[2021-07-04] MEDS ORDERED: MORPHINE SULFATE 4 MG/ML SYRINGE IM STA (12:57)
[2021-07-04] MEDS ORDERED: CYCLOBENZAPRINE 5 MG TAB PO STA (12:58)
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
== END 2021-07-04 14:20 | disposition home or self-care (01) ==
LOC: EC 11:25
DX: S39.012A Strain of muscle, fascia and tendon of lower back, initial encounter (principal); I10 Essential (primary) hypertension; E11.9 Type 2 diabetes mellitus without complications; E78.5 Hyperlipidemia, unspecified; I25.10 Atherosclerotic heart disease of native coronary artery without angina pectoris; I25.2 Old myocardial infarction; K21.9 Gastro-esophageal reflux disease without esophagitis; J45.909 Unspecified asthma, uncomplicated; M19.90 Unspecified osteoarthritis, unspecified site; F41.9 Anxiety disorder, unspecified; F32.9 Major depressive disorder, single episode, unspecified; F17.200 Nicotine dependence, unspecified, uncomplicated; Z95.1 Presence of aortocoronary bypass graft; Z98.2 Presence of cerebrospinal fluid drainage device; Z79.84 Long term (current) use of oral hypoglycemic drugs; Z88.6 Allergy status to analgesic agent; X50.0XXA Overexertion from strenuous movement or load, initial encounter
CPT/HCPCS: 99283; 96372; J2270

== ENCOUNTER 2022-01-27 00:05 | Emergency (ER) | payer MEDICARE ==
[2022-01-27] MEDS ORDERED: SODIUM CHLORIDE 0.9% 500 ML 500 ML IV STA (00:31)
[2022-01-27] MEDS ORDERED: DIAZEPAM 5 MG/ML 2 ML INJ IVP STA (00:32)
[2022-01-27] MEDS ORDERED: ONDANSETRON 4 MG/2 ML VIAL IVP STA (00:33)
[2022-01-27] MEDS ORDERED: GLUCAGON 1 MG/ML VIAL IVP STA (00:33)
[2022-01-27] MEDS ORDERED: NITROGLYCERIN SL TABS 0.4 MG TAB SUBLINGUAL STA (00:33)
--- NOTE | 2022-01-27 00:56 | XR ---
EXAMINATION TYPE: XR chest 1V portable DATE OF EXAM: 01/27/2022 COMPARISON: 01/23/2021 HISTORY: Abdominal pain. Chest pain TECHNIQUE: FINDINGS: Heart is enlarged. There is no heart failure. Lungs are clear of infiltrate. There are ster nal wires. Costophrenic angles are clear. Bony thorax is intact IMPRESSION: No active cardiopulmonary disease. Mild cardiomegaly. Heart appears increased compared to old exam.
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
[2022-01-27 01:22] LABS: HCT 42.6 % (39.0-53.0); HGB 13.7 gm/dL (13.0-17.5); MCH 32.8 pg (25.0-35.0); MCHC 32.2 g/dL (31.0-37.0); MCV 101.8 fL (80.0-100.0); Macrocytosis Slight; Mean Platelet Volume 7.2; Platelet Count 224 k/uL (150-450); RBC 4.18 m/uL (4.30-5.90); RDW 14.9 % (11.5-15.5); WBC 5.7 k/uL (3.8-10.6)
[2022-01-27 01:31] LABS: ALT 42 U/L (4-49); AST 37 U/L (17-59); African American GFR (CKD) >90 (>60 ml/min/1.73 sqM); Albumin 4.4 g/dL (3.5-5.0); Alkaline Phosphatase 88 U/L (38-126); Anion Gap 9 mmol/L; Blood Urea Nitrogen 16 mg/dL (9-20); Calcium 9.3 mg/dL (8.4-10.2); Carbon Dioxide 25 mmol/L (22-30); Chloride 103 mmol/L (98-107); Glucose 114 mg/dL (74-99); Non-African American GFR(CKD) >90 (>60 ml/min/1.73 sqM); Potassium 4.7 mmol/L (3.5-5.1); Sodium 137 mmol/L (137-145); Total Bilirubin 0.5 mg/dL (0.2-1.3); Total Protein 7.4 g/dL (6.3-8.2)
[2022-01-27 01:34] LABS: INR 0.9 (<1.2); Prothrombin Time 10.1 sec (9.0-12.0)
[2022-01-27 03:46] VITALS: BP 110/78; PULSE 81; RESP 20; TEMP 98
[2022-01-27 04:05] LABS: Eosinophils # (M) 0.06 k/uL (0-0.7); Lymphocytes # (M) 2.51 k/uL (1.0-4.8); Monocytes # (M) 0.29 k/uL (0-1.0); Neutrophils # (M) 2.85 k/uL (1.3-7.7); Neutrophils % (M) 50 %; Nucleated Red Blood Cells 0 /100 WBC (0-0); Total Cells Counted 100
== END 2022-01-27 03:45 | disposition other institution (70) ==
LOC: EC 00:05
DX: T18.128A Food in esophagus causing other injury, initial encounter (principal); E11.9 Type 2 diabetes mellitus without complications; I10 Essential (primary) hypertension; I25.2 Old myocardial infarction; I25.10 Atherosclerotic heart disease of native coronary artery without angina pectoris; J44.9 Chronic obstructive pulmonary disease, unspecified; K21.9 Gastro-esophageal reflux disease without esophagitis; E78.5 Hyperlipidemia, unspecified; M19.90 Unspecified osteoarthritis, unspecified site; F32.A Depression, unspecified; F41.9 Anxiety disorder, unspecified; F17.200 Nicotine dependence, unspecified, uncomplicated; E66.9 Obesity, unspecified; Z79.02 Long term (current) use of antithrombotics/antiplatelets; Z79.84 Long term (current) use of oral hypoglycemic drugs; Z79.82 Long term (current) use of aspirin; Z79.899 Other long term (current) drug therapy; Z68.41 Body mass index [BMI] 40.0-44.9, adult; X58.XXXA Exposure to other specified factors, initial encounter
CPT/HCPCS: 36415; 80053; 85025; 85610; 85730; 71045; 99284; 96374; 96375 ×2; 96361; J1610; J3360; J2405

== ENCOUNTER 2022-03-31 22:45 | Emergency (ER) | payer MEDICARE, OTHER ==
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
== END 2022-04-01 01:17 | disposition expired ==
LOC: EC 22:45
DX: I46.9 Cardiac arrest, cause unspecified (principal); E11.9 Type 2 diabetes mellitus without complications; E78.5 Hyperlipidemia, unspecified; I10 Essential (primary) hypertension; I25.10 Atherosclerotic heart disease of native coronary artery without angina pectoris; I25.2 Old myocardial infarction; J44.9 Chronic obstructive pulmonary disease, unspecified; K21.9 Gastro-esophageal reflux disease without esophagitis; M19.90 Unspecified osteoarthritis, unspecified site; F32.A Depression, unspecified; F41.9 Anxiety disorder, unspecified; F17.200 Nicotine dependence, unspecified, uncomplicated; Z79.02 Long term (current) use of antithrombotics/antiplatelets; Z79.51 Long term (current) use of inhaled steroids; Z79.82 Long term (current) use of aspirin; Z79.84 Long term (current) use of oral hypoglycemic drugs; Z79.899 Other long term (current) drug therapy; Z95.5 Presence of coronary angioplasty implant and graft
CPT/HCPCS: 93005; 99291